=== PATIENT | female | born 1980 | race Hispanic/Latino ===

== ENCOUNTER 2024-12-03 10:01 | Inpatient (IN) | payer OTHER ==
[~2024-12-03] VITALS: Ht 165.1 cm; Wt 86.2 kg
[2024-12-03] MEDS: 0.9%NACL 1000ML 1,000 ML IV ONE ×2 (10:37→11:29)
[2024-12-03 10:39] LABS: BASOPHILS # (AUTO) 0.04 K/uL (0.00-0.20); BASOPHILS % (AUTO) 0.2 % (0.0-5.0); EOSINOPHILS % (AUTO) 0.5 % (0.0-8.0); HEMATOCRIT 40.1 % (36-48); IMMATURE GRANULOCYTE ABSOLUTE 0.12 K/uL (0-1); LYMPHOCYTES # (AUTO) 1.7 K/uL (1.0-4.8); LYMPHOCYTES % (AUTO) 7.5 % (21.0-51.0); MEAN CORPUSCULAR HEMOGLOBIN 31.1 pg (27.0-33.0); MEAN CORPUSCULAR HGB CONC 34.2 g/dL (32.0-36.0); MEAN CORPUSCULAR VOLUME 90.9 fL (79-99); MONOCYTES # (AUTO) 1.1 K/uL (0.1-1.0); NEUTROPHILS % (AUTO) 86.3 % (40.0-77.0); PLATELET COUNT (AUTO) 177 K/uL (130-400); RED BLOOD CELL COUNT(AUTO) 4.41 MIL/uL (4.00-5.50); RED CELL DISTRIBUTION WIDTH 12.8 % (11.0-15.5)
[2024-12-03 10:56] LABS: ALBUMIN 3.2 g/dL (3.5-5.0); BILIRUBIN,DIRECT 0.3 mg/dL (0.0-0.3); BILIRUBIN,TOTAL 0.9 mg/dL (0.2-1.0); CREATININE 0.5 mg/dL (0.5-1.0); POTASSIUM 3.4 mmol/L (3.5-5.1); TOTAL PROTEIN, SERUM 7.4 g/dL (6.0-8.3)
[2024-12-03 11:05] LABS: ADD UA MICROSCOPIC YES; APPEARANCE,URINE CLOUDY (CLEAR); BILIRUBIN,URINE NEGATIVE (NEGATIVE); COLOR,URINE LIGHT-ORANGE (YELLOW); GLUCOSE, URINE (UA) NEGATIVE (NEGATIVE); KETONES,URINE 100 mg/dL (NEGATIVE); LEUKOCYTE ESTERASE ,URINE NEGATIVE Leu/uL (NEGATIVE); NITRATE,URINE NEGATIVE (NEGATIVE); OCCULT BLOOD,URINE LARGE (NEGATIVE); PROTEIN,URINE 50 mg/dL (NEGATIVE); UROBILINOGEN,URINE 0.2 mg/dL (0.2-1.0)
--- NOTE | 2024-12-03 11:26 | ERN ---
General Chief Complaint: Abdominal Pain Stated Complaint: ABDOMINAL PAIN Time Seen by MD: 10:10 Time Seen by Midlevel: 10:10 Source: patient History of Present Illness Initial Comments The patient is a 44-year-old female with no significant past medical history presenting to the emergency department with right-sided abdominal pain that started last night and progressively worsened. Associated symptoms include chills and nausea. Denies any other symptoms. Allergies: Coded Allergies: No Known Drug Allergies (Unverified Allergy, Unknown, 12/03/24) Past Medical History Past Medical History: No Pertinent History Past Surgical History: Cholecystectomy Surgical History Other: RIGHT OVARIAN CYST REMOVAL 2021 ROS Dictation CONSTITUTIONAL: Negative except for HPI HEAD/FACE: Negative except for HPI EENT: Negative except for HPI RESPIRATORY: Negative except for HPI GASTROINTESTINAL/ABDOMINAL: Negative except for HPI GENITOURINARY: Negative except for HPI MUSCULOSKELETAL: Negative except for HPI INTEGUMENTARY: Negative except for HPI NEUROLOGICAL/PSYCH: Negative except for HPI HEMATOLOGIC/LYMPHATIC: Negative except for HPI All Systems Negative, Except as noted above. 13 point review of systems assessed and all negative except for above. Physical Exam Physical Exam Dictation Vital Signs reviewed General Appearance: Alert, oriented x 3, no acute distress, well developed, nourished. Head and Face: non-traumatic. Eyes: PERRL, pink conjunctivas, eyelid no trauma, anterior chamber with arcus senilis. Ears: Pinnas intact and no signs of trauma or erythema ear canals clear and no discharge TM no erythema Nose: No discharge, no bleeding. Oropharynx: Mouth normal, tongue pink, pharynx clear,no erythema, tonsils no exudates, no abscesses noted, mucous membrane moist Neck: Supple, non-tender, no thyromegaly, no masses, no JVD, no bruits Breast:Deferred Chest:No tenderness, no crepitus, no paradoxical movement, no retractions Lungs:Clear, well-ventilated, symmetric, no rales, no wheezing, no rhonchi, no stridor, good breath sounds bilaterally Heart: Regular rate, regular rhythm, no murmur, no gallops Vascular: no peripheral edema, Abdomen: Soft, positive bowel sounds, nondistended, no guarding, Right lower quadrant abdominal tenderness, no rebound, no masses no hepatomegaly, no splenomegaly, no Cheney's sign, no hernias. Rectal: Deferred Genital: Deferred Neurological: Normal speech, motor function intact, sensory function intact Musculoskeletal: Neck nontender, full range of motion, back nontender, full range of motion, Extremities: nontender, full range of motion Skin: Color pink, dry, no turgor, no rash, no lacerations, no abrasions, no contusions. Lymphatic: Deferred Results Laboratory and Microbiology Lab and Micro Result Laboratory Tests Test 12/03/24 10:33 12/03/24 10:47 12/03/24 12:15 White Blood Count 22.0 K/uL (4.8-10.8) H Red Blood Count 4.41 MIL/uL (4.00-5.50) Hemoglobin 13.7 g/dL (12.0-16.0) Hematocrit 40.1 % (36-48) Mean Corpuscular Volume 90.9 fL (79-99) Mean Corpuscular Hemoglobin 31.1 pg (27.0-33.0) Mean Corpuscular Hemoglobin Concent 34.2 g/dL (32.0-36.0) Red Cell Distribution Width 12.8 % (11.0-15.5) Platelet Count 177 K/uL (130-400) Mean Platelet Volume 11.6 fL (7.5-10.5) H Immature Granulocyte % (Auto) 0.5 % (0-1) Neutrophils (%) (Auto) 86.3 % (40.0-77.0) H Lymphocytes (%) (Auto) 7.5 % (21.0-51.0) L Monocytes (%) (Auto) 5.0 % (3.0-13.0) Eosinophils (%) (Auto) 0.5 % (0.0-8.0) Basophils (%) (Auto) 0.2 % (0.0-5.0) Neutrophils # (Auto) 19.0 K/uL (1.8-7.7) H Lymphocytes # (Auto) 1.7 K/uL (1.0-4.8) Monocytes # (Auto) 1.1 K/uL (0.1-1.0) H Eosinophils # (Auto) 0.10 K/uL (0.00-0.70) Basophils # (Auto) 0.04 K/uL (0.00-0.20) Absolute Immature Granulocyte (auto 0.12 K/uL (0-1) Nucleated Red Blood Cells 0.0 % (0.0-0.19) White Cell Morphology Comment See comments Sodium Level 139 mmol/L (136-145) Potassium Level 3.4 mmol/L (3.5-5.1) L Chloride Level 103 mmol/L (101-111) Carbon Dioxide Level 26 mmol/L (21-32) Blood Urea Nitrogen 7 mg/dL (7-18) Creatinine 0.5 mg/dL (0.5-1.0) Glomerular Filtration Rate Calc 118 mL/min (>90) Random Glucose 106 mg/dL (70-105) H Total Calcium 8.9 mg/dL (8.5-10.1) Total Bilirubin 0.9 mg/dL (0.2-1.0) Direct Bilirubin 0.3 mg/dL (0.0-0.3) Aspartate Amino Transf (AST/SGOT) 10 U/L (10-37) Alanine Aminotransferase (ALT/SGPT) 20 U/L (12-78) Alkaline Phosphatase 53 U/L (50-136) Total Protein 7.4 g/dL (6.0-8.3) Albumin 3.2 g/dL (3.5-5.0) L Lipase 15 U/L (16-77) L Serum Test, Qualitative NEGATIVE (NEGATIVE) Urine Color LIGHT-ORANGE (YELLOW) Urine Appearance CLOUDY (CLEAR) H Urine pH 6.0 (5.0-8.0) Urine Specific Moran 1.032 (1.001-1.031) Urine Protein 50 mg/dL (NEGATIVE) H Urine Glucose (UA) NEGATIVE mg/dL (NEGATIVE) Urine Ketones 100 mg/dL (NEGATIVE) H Urine Occult Blood LARGE (NEGATIVE) H Urine Nitrate NEGATIVE (NEGATIVE) Urine Bilirubin NEGATIVE mg/dL (NEGATIVE) Urine Urobilinogen 0.2 mg/dL (0.2-1.0) Urine Leukocyte Esterase NEGATIVE Melchor/uL Urine RBC 6-10 /HPF (0-1) H Urine WBC 11-25 /HPF (0-1) H Urine Squamous Epithelial Cells MANY /HPF (0-2) Urine Bacteria None /HPF (None Seen) Lactic Acid Level 1.3 mmol/L (0.8-2.5) Labs Reviewed?: Yes MDM MDM: Differential diagnosis: Acute appendicitis, diverticulitis, intra-abdominal abscess, small-bowel obstruction Rationale: Tests considered and ordered secondary to shared decision making include: Previous outside records reviewed: Old ER visits. Risk of complication and/or morbidity or mortality of patient management: None Medications-Per medication reconciliation Need for hospitalization: Patient does meet criteria for hospitalization. Need for emergency major/minor surgery: No There are no social concerns with this patient. Prescription drug management Prescriptions will include symptomatic care Patient's prior external medical records from other ER visits were reviewed by me as indicated. Prior testing and results from previous visits were reviewed. Prior tests were taken into account with medical decision making and resource utilization, independent historian/historians were used to obtain complete medical history. I independently interpreted the test that were performed, results were reviewed by me and considered findings on radiology if ordered. Medical management and examination interpretation discussions were had by me with other qualified healthcare professionals as indicated for the patient's care. ED Course Orders Procedure Category Date Status Time Cbc With Differential LAB 12/03/24 Complete 10:16 Basic Metabolic Panel LAB 12/03/24 Complete 10:16 Hepatic Function Panel LAB 12/03/24 Complete 10:16 Lipase LAB 12/03/24 Complete 10:16 Urinalysis Profile LAB 12/03/24 Complete 10:16 Testing, LAB 12/03/24 Complete Serum Hcg 10:16 0.9%Nacl 1000ml (Ns PHA 12/03/24 Complete 1000ml) 10:30 Ct Abdomen/Pelvis CT 12/03/24 Resulted W/Contrast 10:16 Morphine 2mg Syg PHA 12/03/24 Complete (Morphine 2mg Syg) 11:30 Ondansetron 4mg Inj PHA 12/03/24 Complete (Zofran 4mg Inj) 11:30 Acetaminophen 325 Tab PHA 12/03/24 Complete (Tylenol 325mg Tab 11:30 0.9%Nacl 1000ml (Ns PHA 12/03/24 Complete 1000ml) 11:30 Ketorolac PHA 12/03/24 Complete Tromethamine 15mg/Ml 11:30 Lactic Acid LAB 12/03/24 Complete 11:38 Culture Urine JULIA 12/03/24 In Process 11:41 Iohexol (Omnipaque) PHA 12/03/24 Complete 12:27 Zosyn 3.375gm+Ns 50ml PHA 12/03/24 Complete (Zosyn 3.375gm+Ns 13:00 Current Medications Medications (Trade) Dose Ordered Sig/Eric Route PRN Reason Start Time Stop Time Status Last Admin Dose Admin Acetaminophen (TYLenol 325MG TAB) 650 mg ONCE ONCE PO 12/03/24 11:30 12/03/24 11:31 DC Iohexol (Omnipaque) 35,000 mg STK-MED ONCE IV 12/03/24 12:27 12/03/24 12:27 DC Ketorolac Tromethamine (toRADol) 15 mg ONCE ONCE IV 12/03/24 11:30 12/03/24 11:31 DC 12/03/24 11:30 Morphine Sulfate (morPHINE 2MG SYG) 2 mg ONCE ONCE IVP 12/03/24 11:30 12/03/24 11:31 DC 12/03/24 13:05 Ondansetron HCl (zoFRAN 4MG INJ) 4 mg ONCE ONCE IVP 12/03/24 11:30 12/03/24 11:31 DC 12/03/24 11:29 Piperacillin Sod/ Tazobactam Sod (Zosyn 3.375gm+NS 50ml) 3.375 gm ONCE ONCE IVPB 12/03/24 13:00 12/03/24 13:01 DC 12/03/24 13:10 Sodium Chloride 1,000 ml @ 0 mls/hr ONCE ONCE IV 12/03/24 10:30 12/03/24 10:31 DC 12/03/24 10:37 Sodium Chloride 1,000 ml @ 0 mls/hr ONCE ONCE IV 12/03/24 11:30 12/03/24 11:31 DC 12/03/24 11:29 Vital Signs Date Time Temp Pulse Resp B/P (MAP) Pulse Ox O2 Delivery O2 Flow Rate FiO2 12/03/24 13:11 99.9 93 20 112/71 96 Room Air* 0 21 12/03/24 10:20 99.9 110 20 133/85 98 Room Air* 0 21 12/03/24 10:03 99.9 110 20 133/85 96 Room Air [place] [address] [address] IMAGING REPORT Signed PATIENT: ZURDO FLANNERY MR#: [id number] : 1980 SEX: F AGE: 44 LOCATION: [facility] ORDER 1017 STATUS: [facility] REPORT#: [id number] SERVICE 1016 REASON: Right sided abd pain ORDERING PHYSICIAN: CORBY GUTIERREZ PROCEDURE: ABD PEL W - CT ABDOMEN/PELVIS W/CONTRAST Exam Type: CT ABDOMEN/PELVIS W/CONTRAST Clinical Information: Right sided abd pain Comparison: None Contrast: 100 cc's Isovue 370 IV, no complications or adverse reactions CT Dose Index (CTDI): 31.60 mGy Dose Length Product (DLP): 1740.80 total mGy-cm Findings: No evidence of nephro or ureterolithiasis is found. No hydronephrosis or ureteral dilatation is seen. The lung bases are clear. The stomach is unremarkable. It shows no wall thickening. No gross ulceration is seen. It is not overly distended. There are no surrounding inflammatory changes. No wall lesions are identified to suggest cancer. The spleen is unremarkable. It is not enlarged. The pancreas shows normal anatomy. It is not fatty replaced. It shows no lesions. The pancreatic duct is not dilated. The gallbladder is surgically absent. The adrenal glands are unremarkable. There is no enlargement. No lesions are noted. The liver is unremarkable. It shows no focal masses. The appendix is unremarkable. It shows no evidence of inflammation. No appendicolith is seen. The small bowel is unremarkable. There is no evidence of dilatation to suggest obstruction. No evidence of adynamic ileus is seen. There is no small bowel wall thickening to suggest enteritis. The large bowel shows diverticulosis of the colon. In addition, there are inflammatory changes of the ascending suggestive of acute diverticulitis. There is no evidence of bowel perforation. The colon is otherwise unremarkable. The urinary bladder is unremarkable. There is no wall thickening to suggest tumor or inflammation. There are no intraluminal calculi. There are no diverticula. There is no evidence of chronic bladder outlet obstruction. There is no evidence of urinary bladder distention to suggest urinary retention. The other pelvic structures are unremarkable. The bony and vascular structures are unremarkable for the patient's age. IMPRESSION: The large bowel shows diverticulosis of the colon. In addition, there are inflammatory changes of the ascending suggestive of acute diverticulitis. There is no evidence of bowel perforation. The colon is otherwise unremarkable. This study was performed using dose reduction techniques to include automated exposure control and/or adjustment of the mA and/or kV according to patient size. DICTATED BY: MONIQUE TREVINO MD DATE: 12/03/24 1248 ELECTRONICALLY SIGNED BY: MONIQUE TREVINO MD DATE: 12/03/24 1254 DX & DISP Disposition: Inpatient Decision to Admit Date: December 03, 2024 Departure Impression: Primary Impression: Diverticulitis of ascending colon Additional Impression: Leukocytosis Condition: Stable Referrals: SELF,REFERRAL (PCP) Time of Disposition: 14:03 I have reviewed the case, and I agree with, Diagnosis and Plan I performed the substantive portion of the visit. I have reviewed and personally made and approve the management plan that is documented in the note by myself or the ANNELIESE. I acknowledge for responsibility for the patient's management plan. CORBY GUTIERREZ December 03, 2024 11:26
[2024-12-03] MEDS: ondanSETRON 4MG INJ IVP ONE (11:29)
[2024-12-03] MEDS: ketOROlac 15MG/ML VIAL (15MG/ML) IV ONE (11:30)
[2024-12-03 11:40] LABS: MUCUS,URINE FEW LPF (None Seen); SQUAMOUS EPITHELIAL CELL,UR MANY /HPF (0-2)
[2024-12-03] MEDS ORDERED: IOHEXOL 350 MG/ML 100ML INFUS..BTL IV ONE (12:27)
--- NOTE | 2024-12-03 12:54 | HMCIMG ---
Exam Type: CT ABDOMEN/PELVIS W/CONTRAST Clinical Information: Right sided abd pain Comparison: None Contrast: 100 cc's Isovue 370 IV, no complications or adverse reactions CT Dose Index (CTDI): 31.60 mGy Dose Length Product (DLP): 1740.80 total mGy-cm Findings: No evidence of nephro or ureterolithiasis is found. No hydronephrosis or ureteral dilatation is seen. The lung bases are clear. The stomach is unremarkable. It shows no wall thickening. No gross ulceration is seen. It is not overly distended. There are no surrounding inflammatory changes. No wall lesions are identified to suggest cancer. The spleen is unremarkable. It is not enlarged. The pancreas shows normal anatomy. It is not fatty replaced. It shows no lesions. The pancreatic duct is not dilated. The gallbladder is surgically absent. The adrenal glands are unremarkable. There is no enlargement. No lesions are noted. The liver is unremarkable. It shows no focal masses. The appendix is unremarkable. It shows no evidence of inflammation. No appendicolith is seen. The small bowel is unremarkable. There is no evidence of dilatation to suggest obstruction. No evidence of adynamic ileus is seen. There is no small bowel wall thickening to suggest enteritis. The large bowel shows diverticulosis of the colon. In addition, there are inflammatory changes of the ascending suggestive of acute diverticulitis. There is no evidence of bowel perforation. The colon is otherwise unremarkable. The urinary bladder is unremarkable. There is no wall thickening to suggest tumor or inflammation. There are no intraluminal calculi. There are no diverticula. There is no evidence of chronic bladder outlet obstruction. There is no evidence of urinary bladder distention to suggest urinary retention. The other pelvic structures are unremarkable. The bony and vascular structures are unremarkable for the patient's age. IMPRESSION: The large bowel shows diverticulosis of the colon. In addition, there are inflammatory changes of the ascending suggestive of acute diverticulitis. There is no evidence of bowel perforation. The colon is otherwise unremarkable. This study was performed using dose reduction techniques to include automated exposure control and/or adjustment of the mA and/or kV according to patient size.
[2024-12-03] MEDS: morPHINE 2 MG SYG IVP ONE (13:05)
[2024-12-03] MEDS: ZOSYN 3.375GM +NS 50ML IVPB ONE (13:10)
[2024-12-03] MEDS ORDERED: LACTULOSE 20 GM/30 ML UDCUP PO PRN (14:30)
[2024-12-03] MEDS ORDERED: DiphenhydrAMINE HCL 50 MG/ML VIAL IV PRN (14:30)
[2024-12-03] MEDS ORDERED: NITROGLYCERIN 0.4 MG SL TAB SL PRN (14:30)
[2024-12-03] MEDS ORDERED: PoTASSium chloRIDE 10MEQ/100ML 100 ML IV PRN (14:30)
[2024-12-03] MEDS ORDERED: MAG/ALUM/SIMETH 30 ML UDCUP PO PRN (14:30)
[2024-12-03] MEDS ORDERED: ketOROlac 15MG/ML VIAL (15MG/ML) IV PRN (14:30)
[2024-12-03] MEDS ORDERED: GLUCAGON 1MG KIT 1 MG ML IM PRN (14:30)
[2024-12-03] MEDS ORDERED: PoTASSium chl 10% ELIXIR 20MEQ 20 MEQ/15 ML UDCUP PO PRN (14:30)
[2024-12-03] MEDS ORDERED: guaiFENesin-DM 200/20MG 10ML PO PRN (14:30)
[2024-12-03] MEDS ORDERED: hydrALAZine 20MG/ML VIAL IV PRN (14:30)
[2024-12-03] MEDS ORDERED: ZOLPidem TARTrate 5 MG TAB PO PRN (14:30)
[2024-12-03] MEDS ORDERED: DEXTROSE 50%-WATER 50 ML DISP.SYRIN IV PRN (14:30)
[2024-12-03] MEDS ORDERED: acetaMINOPHEN 325 MG TAB PO PRN ×2 (14:30)
[2024-12-03] MEDS ORDERED: FAMOTIDINE 20MG VIAL IV PRN (14:30)
--- NOTE | 2024-12-03 15:15 | HMCIMG ---
Exam Type: CHEST 1VW Clinical Information: congestion Comparison: None Findings: The lungs are clear of infiltrates. The heart is normal in size. The bony and soft tissue structures of the chest are unremarkable. Impression: Clear lungs.
--- NOTE | 2024-12-03 15:48 | HP ---
[facility] HISTORY [facility] PHYS[facility] Date of Service: December 03, 2024 Time of Service: 15:47 PCP:none Admitting: Dr Rinaldi, Allergies: No Allergy Information Available, No Known Drug Allergies HISTORY OF PRESENT ILLNESS: [ Patient is 44 years old female with no past medical history other than lap fatoumata, right ovary cyst to be well moving, who came to emergency department with a complaining of right lower and upper abdominal pain. Patient stated that she has been having this sharp abdominal pain since Monday that were associated with the chills, nausea, vomiting and fever of 100.6 the highest. Patient took ibuprofen yesterday in the evening 800 mg but it did not last. Today she woke up with very intractable abdominal pain and decided to come to ER for further evaluation/recommendations. Most recent vital signs temperature 99.9� pulse 93 respiration 20 blood pressure 112/71 patient is on room air satting 96% WBC 22 hemoglobin 13.7 hematocrit 40.1 platelets 177 UA negative for leukocytosis or nitrates. Sodium 139 potassium 3.4 creatinine 0.5 BUN seven GFR 118 lactic 1.[address] abdomen/pelvis was performed and showed diverticulosis colon. Acute diverticulitis. Chest x-ray was cleared. We will consult GI for further evaluation/recommendation of abnormal CT abdomen/pelvis POA patient agrees with the further plan. Patient will be admitted under hospitalist care. A.m. labs REVIEW OF SYSTEMS CONSTITUTIONAL: Denies fevers, chills, or night sweats. No unintentional weight loss reported. NEUROLOGICAL: Denies headache, amaurosis fugax, motor weakness, sensory deficit, vertigo/spinning sensation, gait abnormalities, or tremors. ENT: No hearing loss, otalgia, otorrhea, rhinitis, rhinorrhea, hoarseness, or sore throat. CARDIOVASCULAR: Denies any exertional angina, dyspnea on exertion, orthopnea, paroxysmal nocturnal dyspnea, palpitations, life-threatening arrhythmias, claudication. PULMONARY: Denies any shortness of breath, cough, phlegm/sputum, hemoptysis, pleuritic chest pain. SLEEP: Denies morning headaches, daytime somnolence or napping. Denies difficulty falling asleep, staying asleep, waking from sleep. Denies knowledge of snoring. GASTROINTESTINAL: Denies any type of dysphagia to either liquids or solids. Denies nausea, vomiting, pyrosis, early satiety, diarrhea, constipation, or changes in stool consistency or caliber. Denies coffee-ground emesis, hematemesis, hematochezia, or melanotic stools. Complains of abdominal pain right upper and lower quadrant. GENITOURINARY: Denies frequency, urgency, nocturia, hematuria or incontinence (Storage/Irritative symptoms.) Low urinary stream, straining to void, urinary intermittency or hesitancy, splitting of the voiding stream, terminal dribbling. ENDOCRINOLOGIC: Denies polyuria, polydipsia, polyphagia or heat/cold intolerances. HEMATOLOGIC: Denies thrombophilia/previous clots, or coagulopathy/bleeding disorders. ONCOLOGIC: Denies personal history of malignancy. DERMATOLOGIC: Denies rashes or pruritus. PSYCHIATRIC: Denies any suicidal or homicidal ideation. Denies hallucinations. PAST MEDICAL HISTORY: [ Denies any ] PAST SURGICAL HISTORY: [ Lap fatoumata, right ovary cyst removal] PAST SOCIAL HISTORY: [ denies any ] FAMILY HISTORY: [ Lives at home with family. Patient dependent ] Coded Allergies: No Known Drug Allergies (Unverified Allergy, Unknown, 12/03/24) PHYSICAL EXAM GENERAL APPEARANCE: The patient is awake, alert, and oriented, in no acute cardiopulmonary distress. NEUROLOGICAL: Cranial nerves II-XII grossly intact. Motor is 5/5 in bilateral upper and lower extremities proximal to distal. No sensory deficits. HEENT: Face is symmetric. Pupils are equal and reactive. Extraocular movements are intact. NECK: Supple. No JVD. No thyromegaly. No submental, submandibular, pre- /postauricular, occipital or supraclavicular lymphadenopathy. CHEST: Normal chest expansion. No Telemetry. LUNGS: Absence of any rales, rhonchi or any wheezing. CARDIOVASCULAR: Regular. S1 and S2 normal. No appreciable rubs, murmurs or gallops. ABDOMEN: Soft, nontender, and nondistended. There is no rebound, voluntary guarding, or rigidity. : Deferred. No [place]son. EXTREMITIES: Non-edematous and not cyanotic. No clubbing. Good capillary refill. SKIN: No skin breakdown. Vital Sign (Last 24 Hours) 12/03/24 13:11 Temp 99.9 Pulse 93 Resp 20 B/P (MAP) 112/71 Pulse Ox 96 O2 Delivery Room Air* O2 Flow Rate 0 FiO2 21 LABS: Laboratory: Test 12/03/24 12:15 12/03/24 10:47 12/03/24 10:33 Range/Units Lactic Acid Level 1.3 0.8-2.5 mmol/L Urine Color LIGHT-ORANGE YELLOW Urine Appearance CLOUDY H CLEAR Urine pH 6.0 5.0-8.0 Urine Specific [place] 1.032 H 1.001-1.031 Urine Protein 50 H NEGATIVE mg/dL Urine Glucose (UA) NEGATIVE NEGATIVE mg/dL Urine Ketones 100 H NEGATIVE mg/dL Urine Occult Blood LARGE H NEGATIVE Urine Nitrate NEGATIVE NEGATIVE Urine Bilirubin NEGATIVE NEGATIVE mg/dL Urine Urobilinogen 0.2 0.2-1.0 mg/dL Urine Leukocyte Esterase NEGATIVE NEGATIVE Melchor/uL Urine RBC 6-10 H 0-1 /HPF Urine WBC 11-25 H 0-1 /HPF Urine Squamous Epithelial Cells MANY 0-2 /HPF Urine Bacteria None None Seen /HPF White Blood Count 22.0 H 4.8-10.8 K/uL Red Blood Count 4.41 4.00-5.50 MIL/uL Hemoglobin 13.7 12.0-16.0 g/dL Hematocrit 40.1 36-48 % Mean Corpuscular Volume 90.9 79-99 fL Mean Corpuscular Hemoglobin 31.1 27.0-33.0 pg Mean Corpuscular Hemoglobin Concent 34.2 32.0-36.0 g/dL Red Cell Distribution Width 12.8 11.0-15.5 % Platelet Count 177 130-400 K/uL Mean Platelet Volume 11.6 H 7.5-10.5 fL Immature Granulocyte % (Auto) 0.5 0-1 % Neutrophils (%) (Auto) 86.3 H 40.0-77.0 % Lymphocytes (%) (Auto) 7.5 L 21.0-51.0 % Monocytes (%) (Auto) 5.0 3.0-13.0 % Eosinophils (%) (Auto) 0.5 0.0-8.0 % Basophils (%) (Auto) 0.2 0.0-5.0 % Neutrophils # (Auto) 19.0 H 1.8-7.7 K/uL Lymphocytes # (Auto) 1.7 1.0-4.8 K/uL Monocytes # (Auto) 1.1 H 0.1-1.0 K/uL Eosinophils # (Auto) 0.10 0.00-0.70 K/uL Basophils # (Auto) 0.04 0.00-0.20 K/uL Absolute Immature Granulocyte (auto 0.12 0-1 K/uL Nucleated Red Blood Cells 0.0 0.0-0.19 % White Cell Morphology Comment See comments Sodium Level 139 136-145 mmol/L Potassium Level 3.4 L 3.5-5.1 mmol/L Chloride Level 103 101-111 mmol/L Carbon Dioxide Level 26 21-32 mmol/L Blood Urea Nitrogen 7 7-18 mg/dL Creatinine 0.5 0.5-1.0 mg/dL Glomerular Filtration Rate Calc 118 >90 mL/min Random Glucose 106 H 70-105 mg/dL Total Calcium 8.9 8.5-10.1 mg/dL Total Bilirubin 0.9 0.2-1.0 mg/dL Direct Bilirubin 0.3 0.0-0.3 mg/dL Aspartate Amino Transf (AST/SGOT) 10 10-37 U/L Alanine Aminotransferase (ALT/SGPT) 20 12-78 U/L Alkaline Phosphatase 53 50-136 U/L Total Protein 7.4 6.0-8.3 g/dL Albumin 3.2 L 3.5-5.0 g/dL Lipase 15 L 16-77 U/L Serum Test, Qualitative NEGATIVE NEGATIVE Current Medications Medications (Trade) Dose Ordered Sig/Eric Route PRN Reason Start Time Stop Time Status Last Admin Dose Admin Acetaminophen (TYLenol 325MG TAB) 650 mg Q4H PRN PO MILD PAIN (1-3) 12/03/24 14:30 12/03/24 14:45 DC Acetaminophen (TYLenol 325MG TAB) 650 mg Q6H PRN PO MILD PAIN (1-3) 12/03/24 14:30 01/02/25 14:29 Acetaminophen (TYLenol 325MG TAB) 650 mg Q6H PRN PO TEMPERATURE GREATER THAN 101.5 12/03/24 14:30 01/02/25 14:29 Al Hydroxide/Mg Hydroxide (MAALox PLUS 30ML) 30 ml Q6H PRN PO INDIGESTION 12/03/24 14:30 01/02/25 14:29 Dextrose (D50w) 50 ml AD PRN IV HYPOGLYCEMIA PROTOCOL 12/03/24 14:30 01/02/25 14:29 Diphenhydramine HCl (BENAdryl INJ) 25 mg Q6H PRN IV SEVERE ITCHING/RASH 12/03/24 14:30 01/02/25 14:29 Famotidine (Pepcid 20mg Vial) 20 mg BID IV 12/03/24 21:00 01/02/25 20:59 Famotidine (Pepcid 20mg Vial) 20 mg BID PRN IV NAUSEA/VOMITING 12/03/24 14:30 12/03/24 14:45 DC Glucagon (Glucagon 1mg Kit) 1 mg AD PRN IM HYPOGLYCEMIA PROTOCOL 12/03/24 14:30 01/02/25 14:29 Guaifenesin/ Dextromethorphan (RobiTUSSin DM 200/20MG 10ML) 10 ml Q4H PRN PO COUGH 12/03/24 14:30 01/02/25 14:29 Heparin Sodium (Porcine) (HEParin 5,000 UNIT VIAL) 5,000 unit BID SQ 12/03/24 21:00 01/02/25 20:59 Hydralazine HCl (APRESOLine 20MG INJ) 10 mg Q6H PRN IV For:SBP above 160;DBP above 90 12/03/24 14:30 01/02/25 14:29 Insulin Human Regular (humuLIN R 100 UNIT/ML 3ML) INSULIN SLIDING SCAL... ACHS SQ 12/03/24 16:30 01/02/25 16:29 Ketorolac Tromethamine (toRADol) 15 mg Q8H PRN IV MODERATE PAIN (4-6) 12/03/24 14:30 12/08/24 14:29 Lactulose (Constulose 20gm/ 30ml Udcup) 20 gm BID PRN PO CONSTIPATION 12/03/24 14:30 01/02/25 14:29 Magnesium Sulfate 50 ml @ 0 mls/hr PROTOCOL PRN IV other 12/03/24 14:30 01/02/25 14:29 Morphine Sulfate (morPHINE 2MG SYG) 1 mg Q4H PRN IVP SEVERE PAIN (7-10) 12/03/24 14:30 12/10/24 14:29 Nitroglycerin (Nitrostat) 0.4 mg PROTOCOL PRN SL CHEST PAIN 12/03/24 14:30 01/02/25 14:29 Ondansetron HCl (zoFRAN 4MG INJ) 4 mg Q6H PRN IV NAUSEA/VOMITING 12/03/24 14:30 01/02/25 14:29 Piperacillin Sod/ Tazobactam Sod 50 ml @ 12.5 mls/hr ZOSY8 IV 12/03/24 21:00 12/13/24 20:59 Potassium Chloride 100 ml @ 100 mls/hr AD PRN IV POTASSIUM PROTOCOL 12/03/24 14:30 01/02/25 14:29 Potassium Chloride (K-Dur/Klor-Con 20meq) 10 meq AD PRN PO POTASSIUM PROTOCOL 12/03/24 14:30 01/02/25 14:29 Potassium Chloride (KCl 10% Elixir 20meq/15ml) 10 meq AD PRN PO POTASSIUM PROTOCOL 12/03/24 14:30 01/02/25 14:29 Sodium Chloride 1,000 ml @ 100 mls/hr Q10H IV 12/03/24 14:30 01/02/25 14:29 Zolpidem Tartrate (AmbIEN) 5 mg HS PRN PO INSOMNIA 12/03/24 14:30 01/02/25 14:29 DIAGNOSTICS / RADIOLOGY: [ ] ASSESSMENT: [Sepsis POA Diverticulosis colon per CT abdomen/pelvis POA Acute diverticulitis per CT abdomen/pelvis POA Uncontrolled hypertension POA Electrolyte imbalance hypokalemia 3.4 Leukocytosis WBC 22 POA History of a gastric surgery History of lap fatoumata History of right ovary cyst removal ] PLAN: [ Admit to: Medical-surgical Consults: GI Antibiotics: Vanco Zosyn Tests: None at this moment IV fluids Normal saline at 100 mL/hour NEURO: Minimize central acting medications as possible. Fall Precautions. Well lighted room through the day and minimize interruptions through the night to prevent acute delirium. PULMONARY: Chest x-ray negative Supplemental 02 as needed BiPAP as necessary, for respiratory distress Titrate Fio2 to keep Spo2 > or = 90% DuoNeb�s and CPT as needed IS hourly while awake for pulmonary hygiene Out of bed to chair as tolerated VAP Bundle Maintain aspiration precautions at all times CARDIOVASCULAR: Follow hemodynamics. Vital signs per facility protocol GI & NUTRITION: CT abdomen/pelvis diverticulosis colon. Acute diverticulitis Consult GI Continue nutritional support Aspirations precautions Prokinetic agents and laxatives as needed KIDNEYS & ELECTROLYTES: Strict monitoring of intake and output Daily weights Avoid nephrotoxic agents Monitor electrolytes and replace as needed Goal urine output of 30mL/hr or 0.5mL/kg/hr Medications to be dosed according to renal function. Avoid contrast if possible ENDOCRINE: Maintain blood glucose between 100-180 at all times. Insulin sliding scale for blood glucose management Hypoglycemia and hyperglycemia protocol in place INFECTIOUS DISEASE: Trend temperature, WBC and procalcitonin level Follow cultures, deescalate antibiotics as soon as possible. Panculture if new onset fever HEMATOLOGY & COAGULATION: Monitor H&H. Keep Hgb > 7 Transfuse 1 unit of PRBC for Hgb < 7 Transfuse 1 pack of platelets of platelets < 20, 000 Watch for any signs and symptoms of bleeding SKIN: Pressure ulcer prevention per facility protocol Specialty mattress as needed Treatment plan discussed with patient and family at the bedside Medications to be reconciled once obtained by patient and/or family and available to be reconciled in computer p.r.n. medication for pain nausea and vomiting Questions were answered We will continue to monitor the patient closely Leveler for disposition Rehab: PT/OT GI: PPI DVT: SCD's Code Status: Full Resuscitation Disposition: TBD Prognosis: Guarded] ADVANCED CARE PLANNING 1. Which of the following were discussed? Hospice Care - Yes / No Therapeutic options - Yes / No Advance Directives - Yes / No Other discussions - 2. Discussed with who? Patient 3. Voluntary nature of this service was explained to the patient? Yes / No 4. Amount of time spent - ___more than 35 min____ 5. Reviewed by Physician? (if this service was performed by NPP) Yes / No ADDENDUM: ATTENDING PHYSICIAN ATTESTATION: I have reviewed the [facility]'s plan. I have independently seen, reviewed the chart and made my own assessment of the patient. See my addendum for updates to the [facility]'s medical plan MD FAROOQ Johns KATARZYNA B [employer]OCK [employer] OPERATOR December 03, 2024 15:48 NEFTALY RINALDI MD December 04, 2024 15:24
[2024-12-03] MEDS ORDERED: VANCOMYCIN PROTOCOL PER PHARMACY IV SCH (16:00)
[2024-12-03] MEDS: INSULIN humuLIN R 100 UNIT/ML 3ML SQ SCH (16:30)
[2024-12-03] MEDS: acetaMINOPHEN 325 MG TAB PO ONE (16:38)
[2024-12-03] MEDS: 0.9%NACL 1000ML 1,000 ML IV SCH (16:49)
--- NOTE | 2024-12-03 16:59 | NUR ---
PT DENIES DIABETES
--- NOTE | 2024-12-03 17:00 | NUR ---
FIRST ATTEMPT AT CALLING REPORT
--- NOTE | 2024-12-03 17:15 | NUR ---
REPORT GIVEN TO ANTONELLA
[2024-12-03 17:33] LABS: COVID19 (SARS ANTIGEN RAPID) PRESUMPTIVE NEGATIVE (NEGATIVE); INFLUENZA TYPE A Negative For Type A (NEGATIVE); INFLUENZA TYPE B Negative For Type B (NEGATIVE)
[2024-12-03 17:47] VITALS: O2SAT 96
[2024-12-03] MEDS: PoTASSium chloRIDE 20MEQ ER 20 MEQ ERTAB PO ONE (18:14)
[2024-12-03] MEDS: VANCOMYCIN 1.75 GM/250 ML BAG 250 ML IV ONE (18:14)
[2024-12-03 18:18] VITALS: BP 103/66; PULSE 97; RESP 18; TEMP 99.2
--- NOTE | 2024-12-03 19:54 | CONS ---
GASTROENTEROLOGY CONSULTATION NOTE Date of Consultation: December 03, 2024 Time of Consultation: 19:54 History of Present Illness: This is a 44-year-old female with past medical history of laparoscopic cholecystectomy, right ovarian cyst who presented due to right lower and upper abdominal pain ongoing since Monday with chills, nausea, vomiting and fever. Due to worsening pain she presented to the ER. CT abdomen and pelvis was done revealing acute diverticulitis. WBC 22. Review of Systems: CONSTITUTIONAL: No malaise or change in sensation of wellbeing. ENMT: No rhinorrhea, otorrhea, sinus pain, ear ache. CARDIOVASCULAR: No angina, palpitations, orthopnea or paroxysmal dyspnea. RESPIRATORY: No SOB. GASTROINTESTINAL: No abdominal pain, nausea, vomiting, diarrhea, hematemesis, melena or change in the patient's habitual bowel movements consistency/number. GENITOURINARY: No dysuria, hematuria or change in bladder continence. MUSCULOSKELETAL: No new muscle pain or decrease in muscular strength. No new joint swelling, redness or tenderness. SKIN: No new rash. Past Medical History: PAST MEDICAL HISTORY: [ Denies any ] PAST SURGICAL HISTORY: [ Lap fatoumata, right ovary cyst removal] PAST SOCIAL HISTORY: [ denies any ] FAMILY HISTORY: [ Lives at home with family. Patient dependent ] Coded Allergies: No Known Drug Allergies (Unverified Allergy, Unknown, 12/03/24) Physical Exam: GEN: Awake, alert, oriented in person, time and place, and in no acute distress. HEENT: No sinus tenderness. Tympanic membranes were not examined. No rhinorrhea. Oral pharyngeal mucosa is pink, moist and within normal limits. Neck is supple with no cervical lymphadenopathy, thyromegaly or JVD. CHEST: Inspection, palpation and percussion of the chest were unremarkable. Lung auscultation revealed normal breath sounds bilaterally. CARDIAC: PMI is within normal limits. Heart sounds are regular. Normal S1, S2. No gallop or murmur. ABD: Soft, non-tender and not distended. No peritoneal signs on palpation. No organomegaly. Normal bowel sounds. EXT: No cyanosis or clubbing. No edema. SKIN: Intact. No rashes. JOINTS: No evidence of synovitis or acute arthritis. NEURO: Alert and oriented to name, place and person. Cranial nerve examination is unremarkable. No focal motor deficits. Normal speech. Gait is normal. Strength is normal. Vital Sign (Last 24 Hours) 12/03/24 12/03/24 17:47 18:18 Temp 99.1 Pulse 97 Resp 18 B/P (MAP) 103/66 Pulse Ox 95 O2 Delivery Room Air O2 Flow Rate 0.0 FiO2 21 Laboratory: [ ] Laboratory: Test 12/03/24 17:03 12/03/24 12:15 12/03/24 10:47 12/03/24 10:33 Range/Units Influenza Type A Antigen Negative For Type A NEGATIVE Influenza Type B Antigen Negative For Type B NEGATIVE SARS-CoV-2 Antigen (Rapid) PRESUMPTIVE NEGATIVE NEGATIVE Lactic Acid Level 1.3 0.8-2.5 mmol/L Urine Color LIGHT-ORANGE YELLOW Urine Appearance CLOUDY H CLEAR Urine pH 6.0 5.0-8.0 Urine Specific [place] 1.032 H 1.001-1.031 Urine Protein 50 H NEGATIVE mg/dL Urine Glucose (UA) NEGATIVE NEGATIVE mg/dL Urine Ketones 100 H NEGATIVE mg/dL Urine Occult Blood LARGE H NEGATIVE Urine Nitrate NEGATIVE NEGATIVE Urine Bilirubin NEGATIVE NEGATIVE mg/dL Urine Urobilinogen 0.2 0.2-1.0 mg/dL Urine Leukocyte Esterase NEGATIVE NEGATIVE Melchor/uL Urine RBC 6-10 H 0-1 /HPF Urine WBC 11-25 H 0-1 /HPF Urine Squamous Epithelial Cells MANY 0-2 /HPF Urine Bacteria None None Seen /HPF White Blood Count 22.0 H 4.8-10.8 K/uL Red Blood Count 4.41 4.00-5.50 MIL/uL Hemoglobin 13.7 12.0-16.0 g/dL Hematocrit 40.1 36-48 % Mean Corpuscular Volume 90.9 79-99 fL Mean Corpuscular Hemoglobin 31.1 27.0-33.0 pg Mean Corpuscular Hemoglobin Concent 34.2 32.0-36.0 g/dL Red Cell Distribution Width 12.8 11.0-15.5 % Platelet Count 177 130-400 K/uL Mean Platelet Volume 11.6 H 7.5-10.5 fL Immature Granulocyte % (Auto) 0.5 0-1 % Neutrophils (%) (Auto) 86.3 H 40.0-77.0 % Lymphocytes (%) (Auto) 7.5 L 21.0-51.0 % Monocytes (%) (Auto) 5.0 3.0-13.0 % Eosinophils (%) (Auto) 0.5 0.0-8.0 % Basophils (%) (Auto) 0.2 0.0-5.0 % Neutrophils # (Auto) 19.0 H 1.8-7.7 K/uL Lymphocytes # (Auto) 1.7 1.0-4.8 K/uL Monocytes # (Auto) 1.1 H 0.1-1.0 K/uL Eosinophils # (Auto) 0.10 0.00-0.70 K/uL Basophils # (Auto) 0.04 0.00-0.20 K/uL Absolute Immature Granulocyte (auto 0.12 0-1 K/uL Nucleated Red Blood Cells 0.0 0.0-0.19 % White Cell Morphology Comment See comments Sodium Level 139 136-145 mmol/L Potassium Level 3.4 L 3.5-5.1 mmol/L Chloride Level 103 101-111 mmol/L Carbon Dioxide Level 26 21-32 mmol/L Blood Urea Nitrogen 7 7-18 mg/dL Creatinine 0.5 0.5-1.0 mg/dL Glomerular Filtration Rate Calc 118 >90 mL/min Random Glucose 106 H 70-105 mg/dL Total Calcium 8.9 8.5-10.1 mg/dL Total Bilirubin 0.9 0.2-1.0 mg/dL Direct Bilirubin 0.3 0.0-0.3 mg/dL Aspartate Amino Transf (AST/SGOT) 10 10-37 U/L Alanine Aminotransferase (ALT/SGPT) 20 12-78 U/L Alkaline Phosphatase 53 50-136 U/L Total Protein 7.4 6.0-8.3 g/dL Albumin 3.2 L 3.5-5.0 g/dL Lipase 15 L 16-77 U/L Serum Test, Qualitative NEGATIVE NEGATIVE Current Medications Medications (Trade) Dose Ordered Sig/Eric Route PRN Reason Start Time Stop Time Status Last Admin Dose Admin Acetaminophen (TYLenol 325MG TAB) 650 mg Q4H PRN PO MILD PAIN (1-3) 12/03/24 14:30 12/03/24 14:45 DC Acetaminophen (TYLenol 325MG TAB) 650 mg Q6H PRN PO MILD PAIN (1-3) 12/03/24 14:30 01/02/25 14:29 Acetaminophen (TYLenol 325MG TAB) 650 mg Q6H PRN PO TEMPERATURE GREATER THAN 101.5 12/03/24 14:30 01/02/25 14:29 Al Hydroxide/Mg Hydroxide (MAALox PLUS 30ML) 30 ml Q6H PRN PO INDIGESTION 12/03/24 14:30 01/02/25 14:29 Dextrose (D50w) 50 ml AD PRN IV HYPOGLYCEMIA PROTOCOL 12/03/24 14:30 01/02/25 14:29 Diphenhydramine HCl (BENAdryl INJ) 25 mg Q6H PRN IV SEVERE ITCHING/RASH 12/03/24 14:30 01/02/25 14:29 Famotidine (Pepcid 20mg Vial) 20 mg BID IV 12/03/24 21:00 01/02/25 20:59 Famotidine (Pepcid 20mg Vial) 20 mg BID PRN IV NAUSEA/VOMITING 12/03/24 14:30 12/03/24 14:45 DC Glucagon (Glucagon 1mg Kit) 1 mg AD PRN IM HYPOGLYCEMIA PROTOCOL 12/03/24 14:30 01/02/25 14:29 Guaifenesin/ Dextromethorphan (RobiTUSSin DM 200/20MG 10ML) 10 ml Q4H PRN PO COUGH 12/03/24 14:30 01/02/25 14:29 Heparin Sodium (Porcine) (HEParin 5,000 UNIT VIAL) 5,000 unit BID SQ 12/03/24 21:00 01/02/25 20:59 Hydralazine HCl (APRESOLine 20MG INJ) 10 mg Q6H PRN IV For:SBP above 160;DBP above 90 12/03/24 14:30 01/02/25 14:29 Insulin Human Regular (humuLIN R 100 UNIT/ML 3ML) INSULIN SLIDING SCAL... ACHS SQ 12/03/24 16:30 01/02/25 16:29 Ketorolac Tromethamine (toRADol) 15 mg Q8H PRN IV MODERATE PAIN (4-6) 12/03/24 14:30 12/08/24 14:29 Lactulose (Constulose 20gm/ 30ml Udcup) 20 gm BID PRN PO CONSTIPATION 12/03/24 14:30 01/02/25 14:29 Magnesium Sulfate 50 ml @ 0 mls/hr PROTOCOL PRN IV other 12/03/24 14:30 01/02/25 14:29 Morphine Sulfate (morPHINE 2MG SYG) 1 mg Q4H PRN IVP SEVERE PAIN (7-10) 12/03/24 14:30 12/10/24 14:29 Nitroglycerin (Nitrostat) 0.4 mg PROTOCOL PRN SL CHEST PAIN 12/03/24 14:30 01/02/25 14:29 Ondansetron HCl (zoFRAN 4MG INJ) 4 mg Q6H PRN IV NAUSEA/VOMITING 12/03/24 14:30 01/02/25 14:29 Piperacillin Sod/ Tazobactam Sod 50 ml @ 12.5 mls/hr ZOSY8 IV 12/03/24 21:00 12/13/24 20:59 Potassium Chloride 100 ml @ 100 mls/hr AD PRN IV POTASSIUM PROTOCOL 12/03/24 14:30 01/02/25 14:29 Potassium Chloride (K-Dur/Klor-Con 20meq) 10 meq AD PRN PO POTASSIUM PROTOCOL 12/03/24 14:30 01/02/25 14:29 Potassium Chloride (KCl 10% Elixir 20meq/15ml) 10 meq AD PRN PO POTASSIUM PROTOCOL 12/03/24 14:30 01/02/25 14:29 Sodium Chloride 1,000 ml @ 100 mls/hr Q10H IV 12/03/24 14:30 01/02/25 14:29 12/03/24 16:49 100 MLS/HR Vancomycin HCl 250 ml @ 125 mls/hr Q8H IV 12/04/24 02:00 12/14/24 01:59 Vancomycin HCl (Vancomycin Protocol) 1 each AD IV 12/03/24 16:00 12/17/24 15:59 Zolpidem Tartrate (AmbIEN) 5 mg HS PRN PO INSOMNIA 12/03/24 14:30 01/02/25 14:29 Diagnostics / Radiology: [COPY/PASTE HERE IF NO REPORTS PLEASE DELETE SECTION] Assessment: Acute diverticulitis Plan: 1. NPO 2. Broad spectrum antibiotics (Zosyn, Fluoroquinolone or 3rd generation cephalosporin with metronidazole) 3. Follow clinic exam. The pain should gradually improve over days 4. When the pain starts to improve, then OK to start clear liquids and advance a s tolerated. 5. If the CT shows evidence of complicated acute diverticulitis with a perforation or abscess, then consult General Surgery. 6. If a diverticular abscess is present and greater than 4 cm in size, then IR is recommended for percutaneous drainage. Smaller abscesses can be managed with antibiotics alone. We defer management of the abscess to General Surgery. 7. Followup in our clinic after discharge to schedule a colonoscopy in 6 weeks to determine the extent of the diverticulosis and to exclude colon cancer. 8. For alf prevention of acute diverticulitis, we recommend supplemental fiber daily such as Benefiber. The guidelines no longer recommend a restricted diet that avoid nuts, seeds and popcorn. Thank you for allowing us to participate in the care of this patient! SHARLENE STAPLETON [facility] December 03, 2024 19:54
[2024-12-03 20:00] VITALS: BP 112/68; PULSE 90; RESP 17; TEMP 98.2
[2024-12-03 20:40] VITALS: O2SAT 97
[2024-12-03] MEDS: ondanSETRON 4MG INJ IV PRN (20:43)
[2024-12-03] MEDS: ZOSYN 3.375GM+NS 50ML 50 ML IV SCH (20:43)
[2024-12-03] MEDS: morPHINE 2 MG SYG IVP PRN (20:44)
[2024-12-03] MEDS: FAMOTIDINE 20MG VIAL IV SCH (20:53)
[2024-12-03] MEDS: HEParin 5,000 UNIT VIAL SQ SCH (20:53)
--- NOTE | 2024-12-03 20:54 | NUR ---
GLUCOMETER CHECK PT REFUSING GLUCOMETER CHECKS
[2024-12-04] VITALS (7 sets, daily range): BP systolic 114–129; BP diastolic 72–80; PULSE 67–91; RESP 16–20; TEMP 98.2–99.2; O2SAT 97–99
[2024-12-04] MEDS: acetaMINOPHEN 325 MG TAB PO PRN (01:15)
[2024-12-04] MEDS: VANCOMYCIN 1.25 GM/250 ML BAG 250 ML IV SCH (02:20)
--- NOTE | 2024-12-04 07:02 | PN ---
GASTROENTEROLOGY PROGRESS NOTE Date of Visit: December 04, 2024 Time of Visit: 07:02 Events / Notes: [ ] Review of Systems: CONSTITUTIONAL: No malaise or change in sensation of wellbeing. ENMT: No rhinorrhea, otorrhea, sinus pain, ear ache. CARDIOVASCULAR: No angina, palpitations, orthopnea or paroxysmal dyspnea. RESPIRATORY: No SOB. GASTROINTESTINAL: No abdominal pain, nausea, vomiting, diarrhea, hematemesis, melena or change in the patient's habitual bowel movements consistency/number. GENITOURINARY: No dysuria, hematuria or change in bladder continence. MUSCULOSKELETAL: No new muscle pain or decrease in muscular strength. No new joint swelling, redness or tenderness. SKIN: No new rash. Physical Exam: GEN: Awake, alert, oriented in person, time and place, and in no acute distress. HEENT: No sinus tenderness. Tympanic membranes were not examined. No rhinorrhea. Oral pharyngeal mucosa is pink, moist and within normal limits. Neck is supple with no cervical lymphadenopathy, thyromegaly or JVD. CHEST: Inspection, palpation and percussion of the chest were unremarkable. Lung auscultation revealed normal breath sounds bilaterally. CARDIAC: PMI is within normal limits. Heart sounds are regular. Normal S1, S2. No gallop or murmur. ABD: Soft, non-tender and not distended. No peritoneal signs on palpation. No organomegaly. Normal bowel sounds. EXT: No cyanosis or clubbing. No edema. SKIN: Intact. No rashes. JOINTS: No evidence of synovitis or acute arthritis. NEURO: Alert and oriented to name, place and person. Cranial nerve examination is unremarkable. No focal motor deficits. Normal speech. Gait is normal. Strength is normal. Laboratory: [ ] Laboratory: Test 12/04/24 06:45 12/04/24 05:07 12/03/24 17:03 12/03/24 10:47 Range/Units Lactic Acid Level 0.9 0.8-2.5 mmol/L Whole Blood Glucose 99 70-110 MG/DL Influenza Type A Antigen Negative For Type A NEGATIVE Influenza Type B Antigen Negative For Type B NEGATIVE SARS-CoV-2 Antigen (Rapid) PRESUMPTIVE NEGATIVE NEGATIVE Urine Color LIGHT-ORANGE YELLOW Urine Appearance CLOUDY H CLEAR Urine pH 6.0 5.0-8.0 Urine Specific [place] 1.032 H 1.001-1.031 Urine Protein 50 H NEGATIVE mg/dL Urine Glucose (UA) NEGATIVE NEGATIVE mg/dL Urine Ketones 100 H NEGATIVE mg/dL Urine Occult Blood LARGE H NEGATIVE Urine Nitrate NEGATIVE NEGATIVE Urine Bilirubin NEGATIVE NEGATIVE mg/dL Urine Urobilinogen 0.2 0.2-1.0 mg/dL Urine Leukocyte Esterase NEGATIVE NEGATIVE Melchor/uL Urine RBC 6-10 H 0-1 /HPF Urine WBC 11-25 H 0-1 /HPF Urine Squamous Epithelial Cells MANY 0-2 /HPF Urine Bacteria None None Seen /HPF Test 12/03/24 10:33 Range/Units White Blood Count 22.0 H 4.8-10.8 K/uL Red Blood Count 4.41 4.00-5.50 MIL/uL Hemoglobin 13.7 12.0-16.0 g/dL Hematocrit 40.1 36-48 % Mean Corpuscular Volume 90.9 79-99 fL Mean Corpuscular Hemoglobin 31.1 27.0-33.0 pg Mean Corpuscular Hemoglobin Concent 34.2 32.0-36.0 g/dL Red Cell Distribution Width 12.8 11.0-15.5 % Platelet Count 177 130-400 K/uL Mean Platelet Volume 11.6 H 7.5-10.5 fL Immature Granulocyte % (Auto) 0.5 0-1 % Neutrophils (%) (Auto) 86.3 H 40.0-77.0 % Lymphocytes (%) (Auto) 7.5 L 21.0-51.0 % Monocytes (%) (Auto) 5.0 3.0-13.0 % Eosinophils (%) (Auto) 0.5 0.0-8.0 % Basophils (%) (Auto) 0.2 0.0-5.0 % Neutrophils # (Auto) 19.0 H 1.8-7.7 K/uL Lymphocytes # (Auto) 1.7 1.0-4.8 K/uL Monocytes # (Auto) 1.1 H 0.1-1.0 K/uL Eosinophils # (Auto) 0.10 0.00-0.70 K/uL Basophils # (Auto) 0.04 0.00-0.20 K/uL Absolute Immature Granulocyte (auto 0.12 0-1 K/uL Nucleated Red Blood Cells 0.0 0.0-0.19 % White Cell Morphology Comment See comments Sodium Level 139 136-145 mmol/L Potassium Level 3.4 L 3.5-5.1 mmol/L Chloride Level 103 101-111 mmol/L Carbon Dioxide Level 26 21-32 mmol/L Blood Urea Nitrogen 7 7-18 mg/dL Creatinine 0.5 0.5-1.0 mg/dL Glomerular Filtration Rate Calc 118 >90 mL/min Random Glucose 106 H 70-105 mg/dL Hemoglobin A1c 5.0 4.0-6.0 % Estimated Average Glucose (eAG) 97 70-126 mg/dL Total Calcium 8.9 8.5-10.1 mg/dL Total Bilirubin 0.9 0.2-1.0 mg/dL Direct Bilirubin 0.3 0.0-0.3 mg/dL Aspartate Amino Transf (AST/SGOT) 10 10-37 U/L Alanine Aminotransferase (ALT/SGPT) 20 12-78 U/L Alkaline Phosphatase 53 50-136 U/L Total Protein 7.4 6.0-8.3 g/dL Albumin 3.2 L 3.5-5.0 g/dL Lipase 15 L 16-77 U/L Serum Test, Qualitative NEGATIVE NEGATIVE Current Medications Medications (Trade) Dose Ordered Sig/Eric Route PRN Reason Start Time Stop Time Status Last Admin Dose Admin Acetaminophen (TYLenol 325MG TAB) 650 mg Q4H PRN PO MILD PAIN (1-3) 12/03/24 14:30 12/03/24 14:45 DC Acetaminophen (TYLenol 325MG TAB) 650 mg Q6H PRN PO MILD PAIN (1-3) 12/03/24 14:30 01/02/25 14:29 12/04/24 01:15 650 MG Acetaminophen (TYLenol 325MG TAB) 650 mg Q6H PRN PO TEMPERATURE GREATER THAN 101.5 12/03/24 14:30 01/02/25 14:29 Al Hydroxide/Mg Hydroxide (MAALox PLUS 30ML) 30 ml Q6H PRN PO INDIGESTION 12/03/24 14:30 01/02/25 14:29 Dextrose (D50w) 50 ml AD PRN IV HYPOGLYCEMIA PROTOCOL 12/03/24 14:30 01/02/25 14:29 Diphenhydramine HCl (BENAdryl INJ) 25 mg Q6H PRN IV SEVERE ITCHING/RASH 12/03/24 14:30 01/02/25 14:29 Famotidine (Pepcid 20mg Vial) 20 mg BID IV 12/03/24 21:00 01/02/25 20:59 12/03/24 20:53 20 MG Famotidine (Pepcid 20mg Vial) 20 mg BID PRN IV NAUSEA/VOMITING 12/03/24 14:30 12/03/24 14:45 DC Glucagon (Glucagon 1mg Kit) 1 mg AD PRN IM HYPOGLYCEMIA PROTOCOL 12/03/24 14:30 01/02/25 14:29 Guaifenesin/ Dextromethorphan (RobiTUSSin DM 200/20MG 10ML) 10 ml Q4H PRN PO COUGH 12/03/24 14:30 01/02/25 14:29 Heparin Sodium (Porcine) (HEParin 5,000 UNIT VIAL) 5,000 unit BID SQ 12/03/24 21:00 01/02/25 20:59 Hydralazine HCl (APRESOLine 20MG INJ) 10 mg Q6H PRN IV For:SBP above 160;DBP above 90 12/03/24 14:30 01/02/25 14:29 Insulin Human Regular (humuLIN R 100 UNIT/ML 3ML) INSULIN SLIDING SCAL... ACHS SQ 12/03/24 16:30 01/02/25 16:29 Ketorolac Tromethamine (toRADol) 15 mg Q8H PRN IV MODERATE PAIN (4-6) 12/03/24 14:30 12/08/24 14:29 Lactulose (Constulose 20gm/ 30ml Udcup) 20 gm BID PRN PO CONSTIPATION 12/03/24 14:30 01/02/25 14:29 Magnesium Sulfate 50 ml @ 0 mls/hr PROTOCOL PRN IV other 12/03/24 14:30 01/02/25 14:29 Morphine Sulfate (morPHINE 2MG SYG) 1 mg Q4H PRN IVP SEVERE PAIN (7-10) 12/03/24 14:30 12/10/24 14:29 12/03/24 20:44 1 MG Nitroglycerin (Nitrostat) 0.4 mg PROTOCOL PRN SL CHEST PAIN 12/03/24 14:30 01/02/25 14:29 Ondansetron HCl (zoFRAN 4MG INJ) 4 mg Q6H PRN IV NAUSEA/VOMITING 12/03/24 14:30 01/02/25 14:29 12/03/24 20:43 4 MG Piperacillin Sod/ Tazobactam Sod 50 ml @ 12.5 mls/hr [id number] IV 12/03/24 21:00 12/13/24 20:59 12/04/24 05:43 12.5 MLS/HR Potassium Chloride 100 ml @ 100 mls/hr AD PRN IV POTASSIUM PROTOCOL 12/03/24 14:30 01/02/25 14:29 Potassium Chloride (K-Dur/Klor-Con 20meq) 10 meq AD PRN PO POTASSIUM PROTOCOL 12/03/24 14:30 01/02/25 14:29 Potassium Chloride (KCl 10% Elixir 20meq/15ml) 10 meq AD PRN PO POTASSIUM PROTOCOL 12/03/24 14:30 01/02/25 14:29 Sodium Chloride 1,000 ml @ 100 mls/hr Q10H IV 12/03/24 14:30 01/02/25 14:29 12/03/24 16:49 100 MLS/HR Vancomycin HCl 250 ml @ 125 mls/hr Q8H IV 12/04/24 02:00 12/14/24 01:59 12/04/24 02:20 125 MLS/HR Vancomycin HCl (Vancomycin Protocol) 1 each AD IV 12/03/24 16:00 12/17/24 15:59 Zolpidem Tartrate (AmbIEN) 5 mg HS PRN PO INSOMNIA 12/03/24 14:30 01/02/25 14:29 Diagnostics / Radiology: [COPY/PASTE HERE IF NO REPORTS PLEASE DELETE SECTION] Assessment: Acute diverticulitis Plan: 1. NPO 2. Broad spectrum antibiotics (Zosyn, Fluoroquinolone or 3rd generation cephalosporin with metronidazole) 3. Follow clinic exam. The pain should gradually improve over days 4. When the pain starts to improve, then OK to start clear liquids and advance as tolerated. 5. If the CT shows evidence of complicated acute diverticulitis with a perforation or abscess, then consult General Surgery. 6. If a diverticular abscess is present and greater than 4 cm in size, then IR is recommended for percutaneous drainage. Smaller abscesses can be managed with antibiotics alone. We defer management of the abscess to General Surgery. 7. Followup in our clinic after discharge to schedule a colonoscopy in 6 weeks to determine the extent of the diverticulosis and to exclude colon cancer. 8. For retirement prevention of acute diverticulitis, we recommend supplemental fiber daily such as Benefiber. The guidelines no longer recommend a restricted diet that avoid nuts, seeds and popcorn. Thank you for allowing us to participate in the care of this patient! [facility] December 04, 2024 07:02
[2024-12-04 07:05] LABS: BASOPHILS # (AUTO) 0.03 K/uL (0.00-0.20); BASOPHILS % (AUTO) 0.2 % (0.0-5.0); EOSINOPHILS # (AUTO) 0.15 K/uL (0.00-0.70); HEMATOCRIT 34.5 % (36-48); IMMATURE GRANULOCYTE ABSOLUTE 0.07 K/uL (0-1); LYMPHOCYTES # (AUTO) 1.3 K/uL (1.0-4.8); LYMPHOCYTES % (AUTO) 8.9 % (21.0-51.0); MEAN CORPUSCULAR HGB CONC 33.9 g/dL (32.0-36.0); MEAN CORPUSCULAR VOLUME 91.3 fL (79-99); MONOCYTES % (AUTO) 6.4 % (3.0-13.0); NEUTROPHILS # (AUTO) 12.4 K/uL (1.8-7.7); PLATELET COUNT (AUTO) 191 K/uL (130-400); RED BLOOD CELL COUNT(AUTO) 3.78 MIL/uL (4.00-5.50); RED CELL DISTRIBUTION WIDTH 12.8 % (11.0-15.5)
[2024-12-04 07:19] LABS: ALBUMIN 2.7 g/dL (3.5-5.0); BILIRUBIN,DIRECT 0.4 mg/dL (0.0-0.3); CREATININE 0.6 mg/dL (0.5-1.0); MAGNESIUM 1.7 mg/dL (1.80-2.40); POTASSIUM 3.7 mmol/L (3.5-5.1); TOTAL PROTEIN, SERUM 6.7 g/dL (6.0-8.3)
[2024-12-04] MEDS: MAGNESIUM 2GM PREMIX 50ML 50 ML IV PRN (12:52)
[2024-12-04] MEDS: PoTASSium chloRIDE 20MEQ ER 20 MEQ ERTAB PO PRN (12:53)
--- NOTE | 2024-12-04 14:00 | NUR ---
Order received and spoke to nurse, Yan, who stated patient has been walking in the halls independently. Spoke to patient who stated the same. Dc PT no skilled PT need.
--- NOTE | 2024-12-04 15:28 | PN ---
[facility] PROGRESS NOTE Date of Service: December 04, 2024 Time of Service: 15:25 SUBJECTIVE: 12/04 patient seen at bedside, no acute events overnight. She is still complains of some abdominal pain that has improved since admission. She has acute diverticulitis with microperforation noted at the hepatic flexure. We will continue with IV Zosyn, start her on clear liquid diet and advance as tolerated. WBC improved from 22.0 down to 15.0, hemoglobin decreased from 13.7 down to 11.7, remainder of her labs are relatively unremarkable. REVIEW OF SYSTEMS 12 point review of systems negative unless noted in HPI PHYSICAL EXAM GENERAL APPEARANCE: The patient is awake, alert, and oriented, in no acute cardiopulmonary distress. NEUROLOGICAL: Cranial nerves II-XII grossly intact. Motor is 5/5 in bilateral upper and lower extremities proximal to distal. No sensory deficits. HEENT: Face is symmetric. Pupils are equal and reactive. Extraocular movements are intact. NECK: Supple. No JVD. No thyromegaly. No submental, submandibular, pre- /postauricular, occipital or supraclavicular lymphadenopathy. CHEST: Normal chest expansion. No Telemetry. LUNGS: Absence of any rales, rhonchi or any wheezing. CARDIOVASCULAR: Regular. S1 and S2 normal. No appreciable rubs, murmurs or gallops. ABDOMEN: Soft, nontender, and nondistended. There is no rebound, voluntary guarding, or rigidity. : Deferred. No [place]. EXTREMITIES: Non-edematous and not cyanotic. No clubbing. Good capillary refill. SKIN: No skin breakdown. Vital Signs (last 8hr) Date Time Temp Pulse Resp B/P (MAP) Pulse Ox O2 Delivery O2 Flow Rate FiO2 12/04/24 12:00 99.0 75 16 114/77 97 12/04/24 08:16 99.0 91 16 121/80 97 12/04/24 07:52 97 Room Air* 0 21 LABS: Laboratory: Test 12/04/24 06:45 12/04/24 05:07 12/03/24 17:03 12/03/24 10:47 Range/Units White Blood Count 15.0 #H 4.8-10.8 K/uL Red Blood Count 3.78 L 4.00-5.50 MIL/uL Hemoglobin 11.7 L 12.0-16.0 g/dL Hematocrit 34.5 L 36-48 % Mean Corpuscular Volume 91.3 79-99 fL Mean Corpuscular Hemoglobin 31.0 27.0-33.0 pg Mean Corpuscular Hemoglobin Concent 33.9 32.0-36.0 g/dL Red Cell Distribution Width 12.8 11.0-15.5 % Platelet Count 191 130-400 K/uL Mean Platelet Volume 12.1 H 7.5-10.5 fL Immature Granulocyte % (Auto) 0.5 0-1 % Neutrophils (%) (Auto) 83.0 H 40.0-77.0 % Lymphocytes (%) (Auto) 8.9 L 21.0-51.0 % Monocytes (%) (Auto) 6.4 3.0-13.0 % Eosinophils (%) (Auto) 1.0 0.0-8.0 % Basophils (%) (Auto) 0.2 0.0-5.0 % Neutrophils # (Auto) 12.4 H 1.8-7.7 K/uL Lymphocytes # (Auto) 1.3 1.0-4.8 K/uL Monocytes # (Auto) 1.0 0.1-1.0 K/uL Eosinophils # (Auto) 0.15 0.00-0.70 K/uL Basophils # (Auto) 0.03 0.00-0.20 K/uL Absolute Immature Granulocyte (auto 0.07 0-1 K/uL Nucleated Red Blood Cells 0.0 0.0-0.19 % Sodium Level 139 136-145 mmol/L Potassium Level 3.7 3.5-5.1 mmol/L Chloride Level 104 101-111 mmol/L Carbon Dioxide Level 28 21-32 mmol/L Blood Urea Nitrogen 5 L 7-18 mg/dL Creatinine 0.6 0.5-1.0 mg/dL Glomerular Filtration Rate Calc 113 >90 mL/min Random Glucose 94 70-105 mg/dL Lactic Acid Level 0.9 0.8-2.5 mmol/L Total Calcium 8.0 L 8.5-10.1 mg/dL Magnesium Level 1.70 L 1.80-2.40 mg/dL Total Bilirubin 1.0 0.2-1.0 mg/dL Direct Bilirubin 0.4 #H 0.0-0.3 mg/dL Aspartate Amino Transf (AST/SGOT) 88 H 10-37 U/L Alanine Aminotransferase (ALT/SGPT) 121 #H 12-78 U/L Alkaline Phosphatase 137 #H 50-136 U/L Total Creatine Kinase 44 21-232 U/L B-Type Natriuretic Peptide 19 0-100 pg/mL Total Protein 6.7 6.0-8.3 g/dL Albumin 2.7 L 3.5-5.0 g/dL Procalcitonin 0.32 0.05-0.5 ng/mL Whole Blood Glucose 99 70-110 MG/DL Influenza Type A Antigen Negative For Type A NEGATIVE Influenza Type B Antigen Negative For Type B NEGATIVE SARS-CoV-2 Antigen (Rapid) PRESUMPTIVE NEGATIVE NEGATIVE Urine Color LIGHT-ORANGE YELLOW Urine Appearance CLOUDY H CLEAR Urine pH 6.0 5.0-8.0 Urine Specific [place] 1.032 H 1.001-1.031 Urine Protein 50 H NEGATIVE mg/dL Urine Glucose (UA) NEGATIVE NEGATIVE mg/dL Urine Ketones 100 H NEGATIVE mg/dL Urine Occult Blood LARGE H NEGATIVE Urine Nitrate NEGATIVE NEGATIVE Urine Bilirubin NEGATIVE NEGATIVE mg/dL Urine Urobilinogen 0.2 0.2-1.0 mg/dL Urine Leukocyte Esterase NEGATIVE NEGATIVE Melchor/uL Urine RBC 6-10 H 0-1 /HPF Urine WBC 11-25 H 0-1 /HPF Urine Squamous Epithelial Cells MANY 0-2 /HPF Urine Bacteria None None Seen /HPF Test 12/03/24 10:33 Range/Units White Cell Morphology Comment See comments Hemoglobin A1c 5.0 4.0-6.0 % Estimated Average Glucose (eAG) 97 70-126 mg/dL Lipase 15 L 16-77 U/L Serum Test, Qualitative NEGATIVE NEGATIVE Current Medications Medications (Trade) Dose Ordered Sig/Eric Route PRN Reason Start Time Stop Time Status Last Admin Dose Admin Acetaminophen (TYLenol 325MG TAB) 650 mg Q4H PRN PO MILD PAIN (1-3) 12/03/24 14:30 12/03/24 14:45 DC Acetaminophen (TYLenol 325MG TAB) 650 mg Q6H PRN PO MILD PAIN (1-3) 12/03/24 14:30 01/02/25 14:29 12/04/24 01:15 650 MG Acetaminophen (TYLenol 325MG TAB) 650 mg Q6H PRN PO TEMPERATURE GREATER THAN 101.5 12/03/24 14:30 01/02/25 14:29 Al Hydroxide/Mg Hydroxide (MAALox PLUS 30ML) 30 ml Q6H PRN PO INDIGESTION 12/03/24 14:30 01/02/25 14:29 Dextrose (D50w) 50 ml AD PRN IV HYPOGLYCEMIA PROTOCOL 12/03/24 14:30 01/02/25 14:29 Diphenhydramine HCl (BENAdryl INJ) 25 mg Q6H PRN IV SEVERE ITCHING/RASH 12/03/24 14:30 01/02/25 14:29 Famotidine (Pepcid 20mg Vial) 20 mg BID IV 12/03/24 21:00 01/02/25 20:59 12/04/24 07:52 20 MG Famotidine (Pepcid 20mg Vial) 20 mg BID PRN IV NAUSEA/VOMITING 12/03/24 14:30 12/03/24 14:45 DC Glucagon (Glucagon 1mg Kit) 1 mg AD PRN IM HYPOGLYCEMIA PROTOCOL 12/03/24 14:30 01/02/25 14:29 Guaifenesin/ Dextromethorphan (RobiTUSSin DM 200/20MG 10ML) 10 ml Q4H PRN PO COUGH 12/03/24 14:30 01/02/25 14:29 Heparin Sodium (Porcine) (HEParin 5,000 UNIT VIAL) 5,000 unit BID SQ 12/03/24 21:00 01/02/25 20:59 12/04/24 07:53 5,000 UNIT Hydralazine HCl (APRESOLine 20MG INJ) 10 mg Q6H PRN IV For:SBP above 160;DBP above 90 12/03/24 14:30 01/02/25 14:29 Insulin Human Regular (humuLIN R 100 UNIT/ML 3ML) INSULIN SLIDING SCAL... ACHS SQ 12/03/24 16:30 01/02/25 16:29 Ketorolac Tromethamine (toRADol) 15 mg Q8H PRN IV MODERATE PAIN (4-6) 12/03/24 14:30 12/08/24 14:29 Lactulose (Constulose 20gm/ 30ml Udcup) 20 gm BID PRN PO CONSTIPATION 12/03/24 14:30 01/02/25 14:29 Magnesium Sulfate 50 ml @ 0 mls/hr PROTOCOL PRN IV other 12/03/24 14:30 01/02/25 14:29 12/04/24 12:52 25 MLS/HR Morphine Sulfate (morPHINE 2MG SYG) 1 mg Q4H PRN IVP SEVERE PAIN (7-10) 12/03/24 14:30 12/10/24 14:29 12/03/24 20:44 1 MG Nitroglycerin (Nitrostat) 0.4 mg PROTOCOL PRN SL CHEST PAIN 12/03/24 14:30 01/02/25 14:29 Ondansetron HCl (zoFRAN 4MG INJ) 4 mg Q6H PRN IV NAUSEA/VOMITING 12/03/24 14:30 01/02/25 14:29 12/03/24 20:43 4 MG Piperacillin Sod/ Tazobactam Sod 50 ml @ 12.5 mls/hr [id number] IV 12/03/24 21:00 12/13/24 20:59 12/04/24 12:53 12.5 MLS/HR Potassium Chloride 100 ml @ 100 mls/hr AD PRN IV POTASSIUM PROTOCOL 12/03/24 14:30 01/02/25 14:29 Potassium Chloride (K-Dur 10meq Sr Tab) 10 meq AD PRN PO POTASSIUM PROTOCOL 12/04/24 13:30 01/02/25 14:29 Potassium Chloride (K-Dur/Klor-Con 20meq) 10 meq AD PRN PO POTASSIUM PROTOCOL 12/03/24 14:30 12/04/24 13:03 DC 12/04/24 12:53 10 MEQ Potassium Chloride (KCl 10% Elixir 20meq/15ml) 10 meq AD PRN PO POTASSIUM PROTOCOL 12/03/24 14:30 01/02/25 14:29 Sodium Chloride 1,000 ml @ 120 mls/hr Q8H20M IV 12/03/24 14:30 01/02/25 14:29 12/03/24 16:49 100 MLS/HR Vancomycin HCl 250 ml @ 125 mls/hr Q8H IV 12/04/24 02:00 12/04/24 08:30 DC 12/04/24 02:20 125 MLS/HR Vancomycin HCl (Vancomycin Protocol) 1 each AD IV 12/03/24 16:00 12/04/24 08:30 DC Zolpidem Tartrate (AmbIEN) 5 mg HS PRN PO INSOMNIA 12/03/24 14:30 01/02/25 14:29 DIAGNOSTICS / RADIOLOGY: [ ] ASSESSMENT: Sepsis, without shock, resolved POA Diverticulosis colon per CT abdomen/pelvis POA Acute diverticulitis per CT abdomen/pelvis at hepatic flexure, POA Uncontrolled hypertension, ruled out POA Electrolyte imbalance hypokalemia 3.4 Leukocytosis WBC 22, improving POA History of a gastric surgery History of lap fatoumata History of right ovary cyst removal PLAN: Continue Zosyn Continue IV fluids at 120 cc/hour Start clear liquid diet, advance as tolerated P.r.n. medication for pain control Disposition: Pending improvement in clinical status NEFTALY RINALDI MD December 04, 2024 15:28
[2024-12-04] MEDS: PoTASSium chloRIDE 10MEQ SR 10 MEQ/TAB TAB.SR.24H PO PRN (16:39)
[2024-12-05] VITALS: BP 113/73; PULSE 74; RESP 18; TEMP 97.8
[2024-12-05 04:13] VITALS: BP 100/69; PULSE 69; RESP 19; TEMP 98
[2024-12-05 04:51] LABS: BASOPHILS # (AUTO) 0.04 K/uL (0.00-0.20); BASOPHILS % (AUTO) 0.4 % (0.0-5.0); EOSINOPHILS # (AUTO) 0.19 K/uL (0.00-0.70); EOSINOPHILS % (AUTO) 1.8 % (0.0-8.0); HEMATOCRIT 31.6 % (36-48); IMMATURE GRANULOCYTE ABSOLUTE 0.08 K/uL (0-1); LYMPHOCYTES # (AUTO) 1.4 K/uL (1.0-4.8); LYMPHOCYTES % (AUTO) 13.6 % (21.0-51.0); MEAN CORPUSCULAR HEMOGLOBIN 31.4 pg (27.0-33.0); MEAN CORPUSCULAR HGB CONC 34.2 g/dL (32.0-36.0); MEAN CORPUSCULAR VOLUME 91.9 fL (79-99); MONOCYTES # (AUTO) 0.7 K/uL (0.1-1.0); MONOCYTES % (AUTO) 7.1 % (3.0-13.0); NEUTROPHILS % (AUTO) 76.3 % (40.0-77.0); PLATELET COUNT (AUTO) 187 K/uL (130-400); RED BLOOD CELL COUNT(AUTO) 3.44 MIL/uL (4.00-5.50); RED CELL DISTRIBUTION WIDTH 12.7 % (11.0-15.5); WHITE BLOOD COUNT (AUTO) 10.5 K/uL (4.8-10.8)
[2024-12-05 05:25] LABS: ALBUMIN 2.4 g/dL (3.5-5.0); BILIRUBIN,TOTAL 0.6 mg/dL (0.2-1.0); CREATININE 0.5 mg/dL (0.5-1.0); PHOSPHORUS 2.5 mg/dL (2.5-4.9); POTASSIUM 3.7 mmol/L (3.5-5.1); TOTAL PROTEIN, SERUM 6.2 g/dL (6.0-8.3)
[2024-12-05 08:00] VITALS: BP 116/76; PULSE 88; RESP 19; TEMP 98.8
[2024-12-05 09:10] VITALS: O2SAT 97
--- NOTE | 2024-12-05 09:37 | NUR ---
DCP: HOME Pt currently lives alone. Pt denies any insecurities with food, prison, and/or utilities. Pt does not have any DME, home health, or provider services. Pt recently got an appointment with Javi Herron as PCP. At [place] pt will go home and family can assist with transportation. Addendum: 12/05/24 at 0942 by RHEA MUNOZ SS Amended: Links added.
[2024-12-05] MEDS ORDERED: CIPR-278 PO (10:30)
[2024-12-05] MEDS ORDERED: METR-172 PO (10:30)
--- NOTE | 2024-12-05 11:50 | NUR ---
DISCHARGE PERIPHERAL IV DISCONTINUED DISCHARGE INSTRUCTIONS AND EDUCATION PROVIDED TO PATIENT PATIENT AWARE TO FOLLOW UP WITH PCP IN 3-7 DAYS PER MD RECOMMENDATION PATIENT AWARE OF NEW PRESCRIPTIONS TO BE PICKED UP AT PREFERRED PHARMACY ALL QUESTIONS ANSWERED.
--- NOTE | 2024-12-05 16:44 | PN ---
GASTROENTEROLOGY PROGRESS NOTE Date of Visit: December 05, 2024 Time of Visit: 16:44 Events / Notes: [ ] Review of Systems: CONSTITUTIONAL: No malaise or change in sensation of wellbeing. ENMT: No rhinorrhea, otorrhea, sinus pain, ear ache. CARDIOVASCULAR: No angina, palpitations, orthopnea or paroxysmal dyspnea. RESPIRATORY: No SOB. GASTROINTESTINAL: No abdominal pain, nausea, vomiting, diarrhea, hematemesis, melena or change in the patient's habitual bowel movements consistency/number. GENITOURINARY: No dysuria, hematuria or change in bladder continence. MUSCULOSKELETAL: No new muscle pain or decrease in muscular strength. No new joint swelling, redness or tenderness. SKIN: No new rash. Physical Exam: GEN: Awake, alert, oriented in person, time and place, and in no acute distress. HEENT: No sinus tenderness. Tympanic membranes were not examined. No rhinorrhea. Oral pharyngeal mucosa is pink, moist and within normal limits. Neck is supple with no cervical lymphadenopathy, thyromegaly or JVD. CHEST: Inspection, palpation and percussion of the chest were unremarkable. Lung auscultation revealed normal breath sounds bilaterally. CARDIAC: PMI is within normal limits. Heart sounds are regular. Normal S1, S2. No gallop or murmur. ABD: Soft, non-tender and not distended. No peritoneal signs on palpation. No organomegaly. Normal bowel sounds. EXT: No cyanosis or clubbing. No edema. SKIN: Intact. No rashes. JOINTS: No evidence of synovitis or acute arthritis. NEURO: Alert and oriented to name, place and person. Cranial nerve examination is unremarkable. No focal motor deficits. Normal speech. Gait is normal. Strength is normal. Vital Signs (last 8hr) Date Time Temp Pulse Resp B/P (MAP) Pulse Ox O2 Delivery O2 Flow Rate FiO2 12/05/24 09:10 97 Room Air* 0 21 Laboratory: [ ] Laboratory: Test 12/05/24 04:30 12/04/24 06:45 12/04/24 05:07 12/03/24 17:03 Range/Units White Blood Count 10.5 # 4.8-10.8 K/uL Red Blood Count 3.44 L 4.00-5.50 MIL/uL Hemoglobin 10.8 L 12.0-16.0 g/dL Hematocrit 31.6 L 36-48 % Mean Corpuscular Volume 91.9 79-99 fL Mean Corpuscular Hemoglobin 31.4 27.0-33.0 pg Mean Corpuscular Hemoglobin Concent 34.2 32.0-36.0 g/dL Red Cell Distribution Width 12.7 11.0-15.5 % Platelet Count 187 130-400 K/uL Mean Platelet Volume 11.8 H 7.5-10.5 fL Immature Granulocyte % (Auto) 0.8 0-1 % Neutrophils (%) (Auto) 76.3 40.0-77.0 % Lymphocytes (%) (Auto) 13.6 L 21.0-51.0 % Monocytes (%) (Auto) 7.1 3.0-13.0 % Eosinophils (%) (Auto) 1.8 0.0-8.0 % Basophils (%) (Auto) 0.4 0.0-5.0 % Neutrophils # (Auto) 8.0 H 1.8-7.7 K/uL Lymphocytes # (Auto) 1.4 1.0-4.8 K/uL Monocytes # (Auto) 0.7 0.1-1.0 K/uL Eosinophils # (Auto) 0.19 0.00-0.70 K/uL Basophils # (Auto) 0.04 0.00-0.20 K/uL Absolute Immature Granulocyte (auto 0.08 0-1 K/uL Nucleated Red Blood Cells 0.0 0.0-0.19 % Sodium Level 144 136-145 mmol/L Potassium Level 3.7 3.5-5.1 mmol/L Chloride Level 107 101-111 mmol/L Carbon Dioxide Level 28 21-32 mmol/L Blood Urea Nitrogen 5 L 7-18 mg/dL Creatinine 0.5 0.5-1.0 mg/dL Glomerular Filtration Rate Calc 118 >90 mL/min Random Glucose 93 70-105 mg/dL Total Calcium 8.2 L 8.5-10.1 mg/dL Phosphorus Level 2.5 2.5-4.9 mg/dL Magnesium Level 2.00 1.80-2.40 mg/dL Total Bilirubin 0.6 # 0.2-1.0 mg/dL Aspartate Amino Transf (AST/SGOT) 33 10-37 U/L Alanine Aminotransferase (ALT/SGPT) 73 # 12-78 U/L Alkaline Phosphatase 101 # 50-136 U/L Total Protein 6.2 6.0-8.3 g/dL Albumin 2.4 L 3.5-5.0 g/dL Lactic Acid Level 0.9 0.8-2.5 mmol/L Direct Bilirubin 0.4 #H 0.0-0.3 mg/dL Total Creatine Kinase 44 21-232 U/L B-Type Natriuretic Peptide 19 0-100 pg/mL Procalcitonin 0.32 0.05-0.5 ng/mL Whole Blood Glucose 99 70-110 MG/DL Influenza Type A Antigen Negative For Type A NEGATIVE Influenza Type B Antigen Negative For Type B NEGATIVE SARS-CoV-2 Antigen (Rapid) PRESUMPTIVE NEGATIVE NEGATIVE Current Medications Medications (Trade) Dose Ordered Sig/Eric Route PRN Reason Start Time Stop Time Status Last Admin Dose Admin Acetaminophen (TYLenol 325MG TAB) 650 mg Q4H PRN PO MILD PAIN (1-3) 12/03/24 14:30 12/03/24 14:45 DC Acetaminophen (TYLenol 325MG TAB) 650 mg Q6H PRN PO TEMPERATURE GREATER THAN 101.5 12/03/24 14:30 12/05/24 12:09 DC Acetaminophen (TYLenol 325MG TAB) 650 mg Q6H PRN PO MILD PAIN (1-3) 12/03/24 14:30 12/05/24 12:09 DC 12/04/24 20:48 650 MG Al Hydroxide/Mg Hydroxide (MAALox PLUS 30ML) 30 ml Q6H PRN PO INDIGESTION 12/03/24 14:30 12/05/24 12:09 DC Dextrose (D50w) 50 ml AD PRN IV HYPOGLYCEMIA PROTOCOL 12/03/24 14:30 12/05/24 12:09 DC Diphenhydramine HCl (BENAdryl INJ) 25 mg Q6H PRN IV SEVERE ITCHING/RASH 12/03/24 14:30 12/05/24 12:09 DC Famotidine (Pepcid 20mg Vial) 20 mg BID IV 12/03/24 21:00 12/05/24 12:09 DC 12/04/24 20:31 20 MG Famotidine (Pepcid 20mg Vial) 20 mg BID PRN IV NAUSEA/VOMITING 12/03/24 14:30 12/03/24 14:45 DC Glucagon (Glucagon 1mg Kit) 1 mg AD PRN IM HYPOGLYCEMIA PROTOCOL 12/03/24 14:30 12/05/24 12:09 DC Guaifenesin/ Dextromethorphan (RobiTUSSin DM 200/20MG 10ML) 10 ml Q4H PRN PO COUGH 12/03/24 14:30 12/05/24 12:09 DC Heparin Sodium (Porcine) (HEParin 5,000 UNIT VIAL) 5,000 unit BID SQ 12/03/24 21:00 12/05/24 12:09 DC 12/04/24 07:53 5,000 UNIT Hydralazine HCl (APRESOLine 20MG INJ) 10 mg Q6H PRN IV For:SBP above 160;DBP above 90 12/03/24 14:30 12/05/24 12:09 DC Insulin Human Regular (humuLIN R 100 UNIT/ML 3ML) INSULIN SLIDING SCAL... ACHS SQ 12/03/24 16:30 12/05/24 06:01 DC Ketorolac Tromethamine (toRADol) 15 mg Q8H PRN IV MODERATE PAIN (4-6) 12/03/24 14:30 12/05/24 12:09 DC Lactulose (Constulose 20gm/ 30ml Udcup) 20 gm BID PRN PO CONSTIPATION 12/03/24 14:30 12/05/24 12:09 DC Magnesium Sulfate 50 ml @ 0 mls/hr PROTOCOL PRN IV other 12/03/24 14:30 12/05/24 12:09 DC 12/04/24 12:52 25 MLS/HR Morphine Sulfate (morPHINE 2MG SYG) 1 mg Q4H PRN IVP SEVERE PAIN (7-10) 12/03/24 14:30 12/05/24 12:09 DC 12/05/24 01:49 1 MG Nitroglycerin (Nitrostat) 0.4 mg PROTOCOL PRN SL CHEST PAIN 12/03/24 14:30 12/05/24 12:09 DC Ondansetron HCl (zoFRAN 4MG INJ) 4 mg Q6H PRN IV NAUSEA/VOMITING 12/03/24 14:30 12/05/24 12:09 DC 12/03/24 20:43 4 MG Piperacillin Sod/ Tazobactam Sod 50 ml @ 12.5 mls/hr ZOSY8 IV 12/03/24 21:00 12/05/24 12:09 DC 12/05/24 05:05 12.5 MLS/HR Potassium Chloride 100 ml @ 100 mls/hr AD PRN IV POTASSIUM PROTOCOL 12/03/24 14:30 12/05/24 12:09 DC Potassium Chloride (K-Dur 10meq Sr Tab) 10 meq AD PRN PO POTASSIUM PROTOCOL 12/04/24 13:30 12/05/24 12:09 DC 12/04/24 16:39 10 MEQ Potassium Chloride (K-Dur/Klor-Con 20meq) 10 meq AD PRN PO POTASSIUM PROTOCOL 12/03/24 14:30 12/04/24 13:03 DC 12/04/24 12:53 10 MEQ Potassium Chloride (KCl 10% Elixir 20meq/15ml) 10 meq AD PRN PO POTASSIUM PROTOCOL 12/03/24 14:30 12/05/24 12:09 DC Sodium Chloride 1,000 ml @ 120 mls/hr Q8H20M IV 12/03/24 14:30 12/05/24 12:09 DC 12/04/24 20:31 120 MLS/HR Vancomycin HCl 250 ml @ 125 mls/hr Q8H IV 12/04/24 02:00 12/04/24 08:30 DC 12/04/24 02:20 125 MLS/HR Vancomycin HCl (Vancomycin Protocol) 1 each AD IV 12/03/24 16:00 12/04/24 08:30 DC Zolpidem Tartrate (AmbIEN) 5 mg HS PRN PO INSOMNIA 12/03/24 14:30 12/05/24 12:09 DC Diagnostics / Radiology: [COPY/PASTE HERE IF NO REPORTS PLEASE DELETE SECTION] Assessment: Acute diverticulitis Plan: 1. NPO 2. Broad spectrum antibiotics (Zosyn, Fluoroquinolone or 3rd generation cephalosporin with metronidazole) 3. Follow clinic exam. The pain should gradually improve over days 4. When the pain starts to improve, then OK to start clear liquids and advance as tolerated. 5. If the CT shows evidence of complicated acute diverticulitis with a perforation or abscess, then consult General Surgery. 6. If a diverticular abscess is present and greater than 4 cm in size, then IR is recommended for percutaneous drainage. Smaller abscesses can be managed with antibiotics alone. We defer management of the abscess to General Surgery. 7. Followup in our clinic after discharge to schedule a colonoscopy in 6 weeks to determine the extent of the diverticulosis and to exclude colon cancer. 8. For mcc prevention of acute diverticulitis, we recommend supplemental fiber daily such as Benefiber. The guidelines no longer recommend a restricted diet that avoid nuts, seeds and popcorn. Thank you for allowing us to participate in the care of this patient! SHARLENE STAPLETON [employer] December 05, 2024 16:44
--- NOTE | 2024-12-05 18:32 | DS ---
Discharge Summary Hospital Course Summary: 44 years old female with no past medical history other than lap fatoumata, right ovary cyst to be well moving, who came to emergency department with a complaining of right lower and upper abdominal pain. Patient stated that she has been having this sharp abdominal pain since Monday that were associated with the chills, nausea, vomiting and fever of 100.6 the highest. Patient took ibuprofen yesterday in the evening 800 mg but it did not last. She woke up with very intractable abdominal pain and decided to come to ER for further evaluation/recommendations. CT of the abdomen and pelvis showed stranding and inflammation around the hepatic flexure with a microperforation consistent with acute diverticulitis. She was admitted started on clear liquid diet and started on empiric antibiotics. By hospital day two she was tolerating p.o. diet, pain was controlled and cleared for discharge. She will be discharged home on oral antibiotics to complete a seven day course. She will need to follow up with her PCP for a referral to GI for colonoscopy in six weeks to rule out occult malignancy. . Procedure(s): Exam Type: CHEST 1VW Clinical Information: congestion Comparison: None Findings: The lungs are clear of infiltrates. The heart is normal in size. The bony and soft tissue structures of the chest are unremarkable. Impression: Clear lungs. Exam Type: CT ABDOMEN/PELVIS W/CONTRAST Clinical Information: Right sided abd pain Comparison: None Contrast: 100 cc's Isovue 370 IV, no complications or adverse reactions CT Dose Index (CTDI): 31.60 mGy Dose Length Product (DLP): 1740.80 total mGy-cm Findings: No evidence of nephro or ureterolithiasis is found. No hydronephrosis or ureteral dilatation is seen. The lung bases are clear. The stomach is unremarkable. It shows no wall thickening. No gross ulceration is seen. It is not overly distended. There are no surrounding inflammatory changes. No wall lesions are identified to suggest cancer. The spleen is unremarkable. It is not enlarged. The pancreas shows normal anatomy. It is not fatty replaced. It shows no lesions. The pancreatic duct is not dilated. The gallbladder is surgically absent. The adrenal glands are unremarkable. There is no enlargement. No lesions are noted. The liver is unremarkable. It shows no focal masses. The appendix is unremarkable. It shows no evidence of inflammation. No appendicolith is seen. The small bowel is unremarkable. There is no evidence of dilatation to suggest obstruction. No evidence of adynamic ileus is seen. There is no small bowel wall thickening to suggest enteritis. The large bowel shows diverticulosis of the colon. In addition, there are inflammatory changes of the ascending suggestive of acute diverticulitis. There is no evidence of bowel perforation. The colon is otherwise unremarkable. The urinary bladder is unremarkable. There is no wall thickening to suggest tumor or inflammation. There are no intraluminal calculi. There are no diverticula. There is no evidence of chronic bladder outlet obstruction. There is no evidence of urinary bladder distention to suggest urinary retention. The other pelvic structures are unremarkable. The bony and vascular structures are unremarkable for the patient's age. IMPRESSION: The large bowel shows diverticulosis of the colon. In addition, there are inflammatory changes of the ascending suggestive of acute diverticulitis. There is no evidence of bowel perforation. The colon is otherwise unremarkable. Assessment/Plan: Sepsis, without shock, resolved POA Diverticulosis colon per CT abdomen/pelvis POA Acute diverticulitis per CT abdomen/pelvis at hepatic flexure, POA Uncontrolled hypertension, ruled out POA Electrolyte imbalance hypokalemia 3.4 Leukocytosis WBC 22, improving POA History of a gastric surgery History of lap fatoumata History of right ovary cyst removal Discharge Instructions: Follow up with PCP in 3-7 days. Patient had acute diverticulitis with microperforation at the hepatic flexure, please refer to GI for colonoscopy in 6 weeks to rule out occult malignancy. Home Medications: Active Scripts Metronidazole (Metronidazole) 500 Mg Tablet, 1 TAB PO TID for 7 Days, #21 TAB 0 Refills Prov:NEFTALY RINALDI MD 12/05/24 Ciprofloxacin HCl (Cipro) 500 Mg Tablet, 1 TAB PO BID for 7 Days, #14 TAB 0 Refills Prov:NEFTALY RINALDI MD 12/05/24 New Medications: Ciprofloxacin HCl (Cipro) 500 Mg Tablet 1 TAB PO BID for 7 Days, #14 TAB 0 Refills Metronidazole (Metronidazole) 500 Mg Tablet 1 TAB PO TID for 7 Days, #21 TAB 0 Refills Time spent arranging discharge: 31-60 minutes NEFTALY RINALDI MD December 05, 2024 18:32
== END 2024-12-05 11:50 | disposition home or self-care (01) | DRG 872 ==
LOC: EDH 10:01 → EDHIP 14:30 → 3BH 17:34
PROVIDERS: ADMIT Internal Medicine; ATTEND Internal Medicine
DX: A41.9 Sepsis, unspecified organism (principal); K57.20 Diverticulitis of large intestine with perforation and abscess without bleeding; E87.6 Hypokalemia; K57.30 Diverticulosis of large intestine without perforation or abscess without bleeding; Z90.49 Acquired absence of other specified parts of digestive tract
CPT/HCPCS: 36415; 71045; 74177; 80048; 80053; 80076; 81001; 82550; 82948; 83036; 83605; 83690; 83735; 83880; 84100; 84145; 84703; 85025; 87040; 87086; 87426; 87804; 96361; 96374; 99285; G0378; J1644; J1885; J2270; J2405; J2543; J3475; J3490; J7030; Q9967; 3370; J3370

== ENCOUNTER → 2025-01-23 | Outpatient (CLI) | payer OTHER ==
[~2025-01-23] MED LIST: CIPR-278 PO; METR-172 PO
[2025-01-23 08:39] LABS: IMMATURE GRANULOCYTE ABSOLUTE 0.04 K/uL (0-1); NUCLEATED RED BLOOD CELLS 0.0 % (0.0-0.19); PLATELET COUNT (AUTO) 206 K/uL (130-400); RED BLOOD CELL COUNT(AUTO) 4.38 MIL/uL (4.00-5.50); RED CELL DISTRIBUTION WIDTH 12.6 % (11.0-15.5); WHITE BLOOD COUNT (AUTO) 10.0 K/uL (4.8-10.8)
[2025-01-23 08:49] LABS: INR 0.98 (0.85-1.15)
[2025-01-23 08:53] LABS: ASPARTATE AMINOTRANSFERASE 16.0 U/L (10-37); CREATININE 0.5 mg/dL (0.5-1.0); GLOMERULAR FILTR. RATE CALC 118.0 mL/min (>90); GLUCOSE,RANDOM 89.0 mg/dL (70-105); SODIUM SERUM 139.0 mmol/L (136-145); TOTAL PROTEIN, SERUM 7.9 g/dL (6.0-8.3); UREA NITROGEN, BLOOD 13.0 mg/dL (7-18)
== END | disposition home or self-care (01) ==
LOC: LAB 07:50
PROVIDERS: ATTEND Internal Medicine
DX: R14.0 Abdominal distension (gaseous) (principal); R94.5 Abnormal results of liver function studies
CPT/HCPCS: 36415; 80053; 83013; 85025; 85610

== ENCOUNTER 2025-01-28 08:42 | Day surgery (SDC) | payer OTHER ==
[2025-01-28] VITALS (12 sets, daily range): BP systolic 95–122; BP diastolic 66–85; PULSE 63–77; RESP 15–19; TEMP 97.5–98.1
[~2025-01-28] VITALS: Ht 165.1 cm; Wt 87.1 kg
[~2025-01-28 08:42] MED LIST changes: +0.9%NACL 1000ML 1,000 ML IV ONE
== END 2025-01-28 14:51 | disposition home or self-care (01) ==
LOC: ENDO 08:42 → DAH 08:42 → ENDO 14:51
PROVIDERS: ATTEND Internal Medicine
DX: R14.0 Abdominal distension (gaseous) (principal); K63.5 Polyp of colon; K62.1 Rectal polyp; K63.89 Other specified diseases of intestine; K57.30 Diverticulosis of large intestine without perforation or abscess without bleeding; R94.5 Abnormal results of liver function studies; Z79.899 Other long term (current) drug therapy; Z98.890 Other specified postprocedural states
CPT/HCPCS: 45380; 45385; 81025; J7030; J2704; A4620; A4215

== ENCOUNTER → 2025-06-18 | Outpatient (CLI) | payer OTHER ==
[2025-06-18 08:46] LABS: IMMATURE GRANULOCYTE ABSOLUTE 0.05 K/uL (0-1); NUCLEATED RED BLOOD CELLS 0.0 % (0.0-0.19); PLATELET COUNT (AUTO) 194 K/uL (130-400); RED BLOOD CELL COUNT(AUTO) 4.28 MIL/uL (4.00-5.50); RED CELL DISTRIBUTION WIDTH 12.9 % (11.0-15.5); WHITE BLOOD COUNT (AUTO) 12.6 K/uL (4.8-10.8)
[2025-06-18 08:59] LABS: APPEARANCE,URINE CLEAR (CLEAR); GLUCOSE, URINE (UA) NEGATIVE (NEGATIVE); LEUKOCYTE ESTERASE ,URINE 25 Leu/uL (NEGATIVE); NITRATE,URINE NEGATIVE (NEGATIVE); OCCULT BLOOD,URINE NEGATIVE (NEGATIVE)
[2025-06-18 09:08] LABS: ADD UA MICROSCOPIC YES
[2025-06-18 09:09] LABS: ASPARTATE AMINOTRANSFERASE 39.0 U/L (10-37); CREATININE 0.7 mg/dL (0.5-1.0); GLOMERULAR FILTR. RATE CALC 108.0 mL/min (>90); GLUCOSE,RANDOM 94.0 mg/dL (70-105); LDL DIRECT 97.0 mg/dL (0-99); SODIUM SERUM 136.0 mmol/L (136-145); TOTAL PROTEIN, SERUM 7.4 g/dL (6.0-8.3); UREA NITROGEN, BLOOD 14.0 mg/dL (7-18)
[2025-06-18 09:22] LABS: SQUAMOUS EPITHELIAL CELL,UR Rare /HPF (0-2)
== END | disposition home or self-care (01) ==
LOC: LAB 08:08
PROVIDERS: ATTEND Student in an Organized Health Care Education/Training Program
DX: K57.80 Diverticulitis of intestine, part unspecified, with perforation and abscess without bleeding (principal); R73.09 Other abnormal glucose
CPT/HCPCS: 36415; 80053; 80061; 81001; 83036; 84443; 85025